=== PATIENT | female | born 1960 | race Caucasian/White ===

== ENCOUNTER → 2016-12-07 | Outpatient (CLI) | payer BC, OTHER ==
--- NOTE | 2016-12-07 15:55 | REPMRS ---
Patient History The patient states she has not had a clinical breast exam in over a year. Patient is postmenopausal. No known family history of cancer. Took hormonal contraceptives for 5 years. Taking estrogen for 15 years. Taking progesterone for 15 years. Digital Woman Screen Mammo: December 07, 2016 - Exam #: [id number] Bilateral CC and MLO view(s) were taken. Technologist: Rocío Benz Technologist Prior study comparison: July 05, 2015, digital woman screen mammo performed at [facility]. March 07, 2014, bilateral bilat screen digital mammo, performed at [facility] ([facility]). November 01, 2012, bilateral bilat screen digital mammo, performed at [facility] ([facility]). FINDINGS: There are scattered fibroglandular densities. There has been no change in the appearance of the mammogram from the prior studies. There is a mild amount of scattered fibroglandular density which is fairly symmetric. There is no interval development of dominant mass, architectural distortion, or clustered microcalcification suggestive of malignancy. ASSESSMENT: BI-RADS/ACR category 1 mammogram. Negative. Recommendation Routine screening mammogram in 1 year (for women over age 40). This mammogram was interpreted with the aid of an FDA-approved computer-aided dectection system. Electronically Signed By: Jonah Carrillo MD 12/07/16 [id number]
== END ==
LOC: M WHC 11:23
PROVIDERS: ATTEND Family Medicine
DX: Z12.39 Encounter for other screening for malignant neoplasm of breast (principal); Z78.0 Asymptomatic menopausal state

== ENCOUNTER → 2017-01-08 | Outpatient (REF) | payer BC, OTHER | LOC: M LABDRAW1 10:29 | PROVIDERS: ATTEND Internal Medicine Gastroenterology | DX: R19.7 Diarrhea, unspecified (principal) ==

== ENCOUNTER → 2017-01-14 | Outpatient (CLI) | payer BC, OTHER ==
[2017-01-14 19:13] LABS: MEAN CORPUSCULAR HGB CONC 32.1 g/dl (32.0-36.5); MEAN CORPUSCULAR VOLUME 90.2 fl (80.0-96.0); RED CELL DISTRIBUTION WIDTH 14.1 % (11.5-14.5); WHITE BLOOD COUNT 7.5 K/mm3 (4.0-10.0)
[2017-01-14 19:17] LABS: ALBUMIN 3.7 GM/DL (3.2-5.2); ALBUMIN/GLOBULIN RATIO 1.12 (1.00-1.93); ALKALINE PHOSPHATASE 65 U/L (45-117); ALT/SGPT 20 U/L (12-78); ANION GAP 5 MEQ/L (8-16); AST/SGOT 12 U/L (15-37); BILIRUBIN,TOTAL 0.3 MG/DL (0.2-1.0); BLOOD UREA NITROGEN 14 MG/DL (7-18); CALCIUM LEVEL 8.5 MG/DL (8.5-10.1); CARBON DIOXIDE LEVEL 28 MEQ/L (21-32); CHLORIDE LEVEL 108 MEQ/L (98-107); CREATININE FOR GFR 0.84 MG/DL (0.55-1.02); GLOMERULAR FILTRATION RATE > 60.0 (>51); GLUCOSE, FASTING 91 MG/DL (70-105); POTASSIUM SERUM 3.9 MEQ/L (3.5-5.1); SODIUM LEVEL 141 MEQ/L (136-145)
[2017-01-19 00:07] LABS: TISSUE TRANSGLUTAMINASE IgG <2 U/mL (0-5)
== END ==
LOC: M WUC 14:40
PROVIDERS: ATTEND Internal Medicine Gastroenterology
DX: R19.4 Change in bowel habit (principal); R10.84 Generalized abdominal pain; R19.7 Diarrhea, unspecified

== ENCOUNTER → 2017-01-18 | Outpatient (CLI) | payer BC, OTHER ==
[~2017-01-18] MED LIST: GASTROGRAFIN SOLUTION 30ML (Q9963) As Ordered ONE; ISOVUE-370 76% 100ML VIAL (Q9967) As Ordered ONE
--- NOTE | 2017-01-18 14:17 | REP ---
Clinical: Abdominal pain with diarrhea. Technique: Axial contrast enhanced images from the lung bases to the pubic symphysis using oral and 100 ml Isovue 370 intravenous contrast material with coronal and sagittal re-formations. Findings: Lung bases demonstrate minimal dependent changes. Liver, spleen, pancreas, gallbladder, bilateral adrenal glands and kidneys are normal. The enteric system is without obstruction or acute inflammatory process. Pelvis demonstrates partially collapsed normal bladder and findings to suggest prior hysterectomy. No pelvic fluid or ascites. 1 cm fat containing periumbilical hernia noted. No adenopathy. Abdominal aorta and vasculature is relatively normal. Surrounding musculoskeletal structures demonstrate age-related changes without focal osseous abnormality. Impression: No acute intra-abdominal or pelvic pathology appreciated. Signed by Brody Delgadillo MD 01/18/2017 02:08 P
== END ==
LOC: M RAD 11:26
PROVIDERS: ATTEND Internal Medicine Gastroenterology
DX: R10.84 Generalized abdominal pain (principal); R19.4 Change in bowel habit; R19.7 Diarrhea, unspecified
CPT/HCPCS: 74177; Q9963; Q9967

== ENCOUNTER → 2017-03-05 | Outpatient (REF) | payer OTHER ==
[~2017-03-05] MED LIST changes: +CALTCHW5 PO; +ESTR1CRE; +ESTRADIOL; -GASTROGRAFIN SOLUTION 30ML (Q9963) As Ordered ONE; -ISOVUE-370 76% 100ML VIAL (Q9967) As Ordered ONE; +MULTCAP11 PO; +TOPI50TA9; +VANC250C2
== END ==
LOC: M SFHCPLAZ 16:51
PROVIDERS: ATTEND Physician Assistant Medical
DX: R19.7 Diarrhea, unspecified (principal)

== ENCOUNTER → 2017-03-06 | Outpatient (CLI) | payer OTHER ==
[2017-03-06 13:04] LABS: BASO % 0.4 % (0.0-1.0); EOS # 0.1 K/mm3 (0.0-0.50); EOS % 0.8 % (0.0-3.0); LARGE UNSTAINED CELL # 0.1 K/mm3 (0.0-0.4); LARGE UNSTAINED CELL % 1.8 % (0.0-4.0); LYMPH # 1.7 K/mm3 (1.5-4.5); LYMPH % 19.8 % (24.0-44.0); MEAN CORPUSCULAR HEMOGLOBIN 28.6 pg (27.0-33.0); MEAN CORPUSCULAR HGB CONC 32.6 g/dl (32.0-36.5); MEAN CORPUSCULAR VOLUME 87.8 fl (80.0-96.0); MONO # 0.5 K/mm3 (0.0-0.8); MONO % 6.8 % (0.0-5.0); NEUTROPHILS # 5.5 K/mm3 (1.8-7.7); NEUTROPHILS % 70.5 % (36.0-66.0); PLATELET COUNT, AUTOMATED 259 k/mm3 (150-450); RED CELL DISTRIBUTION WIDTH 14.1 % (11.5-14.5); WHITE BLOOD COUNT 7.8 K/mm3 (4.0-10.0)
[2017-03-06 13:27] LABS: ANION GAP 10 MEQ/L (8-16); BLOOD UREA NITROGEN 3 MG/DL (7-18); CALCIUM LEVEL 8.9 MG/DL (8.5-10.1); CARBON DIOXIDE LEVEL 26 MEQ/L (21-32); CHLORIDE LEVEL 105 MEQ/L (98-107); CREATININE FOR GFR 0.85 MG/DL (0.55-1.02); GLOMERULAR FILTRATION RATE > 60.0 (>51); GLUCOSE, FASTING 85 MG/DL (70-105); POTASSIUM SERUM 3.3 MEQ/L (3.5-5.1); SODIUM LEVEL 141 MEQ/L (136-145)
[2017-03-12 15:24] LABS: O+P EXAM SEE SEPARATE REPORT
== END ==
LOC: M WUC 10:35
PROVIDERS: ATTEND Physician Assistant Medical
DX: R19.7 Diarrhea, unspecified (principal)

== ENCOUNTER → 2017-03-15 | Outpatient (REF) | payer OTHER ==
[2017-03-15 13:02] LABS: ANION GAP 6 MEQ/L (8-16); BLOOD UREA NITROGEN 11 MG/DL (7-18); CALCIUM LEVEL 9.3 MG/DL (8.5-10.1); CARBON DIOXIDE LEVEL 27 MEQ/L (21-32); CHLORIDE LEVEL 109 MEQ/L (98-107); CREATININE FOR GFR 0.76 MG/DL (0.55-1.02); GLOMERULAR FILTRATION RATE > 60.0 (>51); GLUCOSE, FASTING 70 MG/DL (70-105); POTASSIUM SERUM 4.6 MEQ/L (3.5-5.1); SODIUM LEVEL 142 MEQ/L (136-145)
== END ==
LOC: M SFHCPLAZ 09:34
PROVIDERS: ATTEND Physician Assistant Medical
DX: A04.7 Enterocolitis due to Clostridium difficile (principal)

== ENCOUNTER → 2017-04-07 | Outpatient (REF) | payer OTHER | LOC: M SFHCPLAZ 09:19 | PROVIDERS: ATTEND Physician Assistant Medical | DX: A09 Infectious gastroenteritis and colitis, unspecified (principal) ==

== ENCOUNTER 2017-04-22 09:57 | Emergency (ER) | payer OTHER, BC ==
[~2017-04-22] VITALS: Ht 170.2 cm; Wt 79.5 kg
[2017-04-22] MEDS ORDERED: ESTR1CRE (10:13)
[2017-04-22] MEDS ORDERED: ESTRADIOL (10:13)
[2017-04-22] MEDS ORDERED: MULTCAP11 PO (10:13)
[2017-04-22] MEDS ORDERED: TOPI50TA9 (10:13)
[2017-04-22] MEDS ORDERED: CALTCHW5 PO (10:13)
[2017-04-22] MEDS ORDERED: VANC250C2 (10:13)
[2017-04-22] MEDS ORDERED: DERMABOND TOPICAL SKIN ADHESIVE TOP ONE (10:30)
[2017-04-22] MEDS ORDERED: ADACEL/BOOSTRIX VACCINE (DIPHTH/PERTUSS/ACELL/TETANUS)0.5ML SYR (90715) IM ONE (10:30)
[2017-04-22 11:09] VITALS: BP 107/64
== END 2017-04-22 11:18 | disposition home or self-care (01) ==
LOC: M ED 09:57
DX: S61.211A Laceration without foreign body of left index finger without damage to nail, initial encounter (principal); W26.0XXA Contact with knife, initial encounter; Y92.89 Other specified places as the place of occurrence of the external cause; Y99.9 Unspecified external cause status; Y93.9 Activity, unspecified; Z23 Encounter for immunization

== ENCOUNTER → 2017-04-26 | Outpatient (REF) | payer BC, OTHER | LOC: M LAB REF 16:37 | PROVIDERS: ATTEND Family Medicine | DX: R30.0 Dysuria (principal) ==

== ENCOUNTER → 2017-05-26 | Outpatient (REF) | payer OTHER ==
[2017-05-26 13:57] LABS: ALBUMIN 3.6 GM/DL (3.2-5.2); ALBUMIN/GLOBULIN RATIO 1.13 (1.00-1.93); ALKALINE PHOSPHATASE 55 U/L (45-117); ALT/SGPT 19 U/L (12-78); ANION GAP 6 MEQ/L (8-16); AST/SGOT 13 U/L (15-37); BILIRUBIN,TOTAL 0.3 MG/DL (0.2-1.0); BLOOD UREA NITROGEN 14 MG/DL (7-18); CALCIUM LEVEL 8.9 MG/DL (8.5-10.1); CARBON DIOXIDE LEVEL 28 MEQ/L (21-32); CHLORIDE LEVEL 113 MEQ/L (98-107); CHOLESTEROL LEVEL 230 MG/DL (<200); CREATININE FOR GFR 0.79 MG/DL (0.55-1.02); FREE T4 0.83 NG/DL (0.76-1.46); GLOMERULAR FILTRATION RATE > 60.0 (>51); GLUCOSE, FASTING 79 MG/DL (70-105); POTASSIUM SERUM 4.6 MEQ/L (3.5-5.1); SODIUM LEVEL 147 MEQ/L (136-145); TOTAL PROTEIN 6.8 GM/DL (6.4-8.2); TRIGLYCERIDES LEVEL 73 MG/DL (<150)
== END ==
LOC: M SFHCPLAZ 08:00
PROVIDERS: ATTEND Family Medicine
DX: E78.5 Hyperlipidemia, unspecified (principal); E55.9 Vitamin D deficiency, unspecified

== ENCOUNTER → 2017-06-01 | Outpatient (REF) | payer OTHER | LOC: M SFHCPLAZ 09:02 | PROVIDERS: ATTEND Family Medicine | DX: N39.0 Urinary tract infection, site not specified (principal) ==

== ENCOUNTER → 2017-06-04 | Outpatient (REF) | payer BC, OTHER | LOC: M LAB REF 11:56 | PROVIDERS: ATTEND Family Medicine | DX: A04.7 Enterocolitis due to Clostridium difficile (principal) ==

== ENCOUNTER → 2017-09-15 | Outpatient (CLI) | payer BC, OTHER ==
[2017-09-15 19:09] LABS: BASO # 0.1 10^3/uL (0.0-0.2); BASO % 1.3 % (0.0-1.0); EOS # 0.1 10^3/uL (0.0-0.50); EOS % 1.4 % (0.0-3.0); HEMATOCRIT 41.9 % (36.0-47.0); HEMOGLOBIN 13.5 g/dl (12.0-16.0); IMMATURE GRANULOCYTE % 0.4 % (0-0); LYMPH # 3.2 10^3/uL (1.5-4.5); LYMPH % 39.8 % (24.0-44.0); MEAN CORPUSCULAR HEMOGLOBIN 27.5 pg (27.0-33.0); MEAN CORPUSCULAR HGB CONC 32.2 g/dl (32.0-36.5); MEAN CORPUSCULAR VOLUME 85.3 fl (80.0-96.0); MONO # 0.7 10^3/uL (0.0-0.8); MONO % 8.3 % (0.0-5.0); NEUTROPHILS # 3.9 10^3/uL (1.8-7.7); NEUTROPHILS % 48.8 % (36.0-66.0); PLATELET COUNT, AUTOMATED 323 10^3/uL (150-450); RED BLOOD COUNT 4.91 10^6/uL (4.00-5.40); RED CELL DISTRIBUTION WIDTH 15.2 % (11.5-14.5); WHITE BLOOD COUNT 7.9 10^3/uL (4.0-10.0)
[2017-09-15 20:20] LABS: ALBUMIN 3.8 GM/DL (3.2-5.2); ALBUMIN/GLOBULIN RATIO 0.95 (1.00-1.93); ALKALINE PHOSPHATASE 72 U/L (45-117); ALT/SGPT 24 U/L (12-78); ANION GAP 6 MEQ/L (8-16); AST/SGOT 17 U/L (7-37); BILIRUBIN,TOTAL 0.3 MG/DL (0.2-1.0); BLOOD UREA NITROGEN 17 MG/DL (7-18); CALCIUM LEVEL 9.3 MG/DL (8.5-10.1); CARBON DIOXIDE LEVEL 30 MEQ/L (21-32); CHLORIDE LEVEL 105 MEQ/L (98-107); CPK CREATINE PHOSPHOKINASE 86 U/L (26-192); CREATININE FOR GFR 0.87 MG/DL (0.55-1.02); GLOMERULAR FILTRATION RATE > 60.0 (>51); GLUCOSE, FASTING 79 MG/DL (70-105); POTASSIUM SERUM 3.9 MEQ/L (3.5-5.1); SODIUM LEVEL 141 MEQ/L (136-145); TOTAL PROTEIN 7.8 GM/DL (6.4-8.2); TROPONIN I < 0.02 NG/ML (< 0.10)
[2017-09-15 20:31] LABS: CK-MB VALUE MASS 1.5 NG/ML (0.0-3.6); MB/CK RELATIVE INDEX 1.74 (< OR =4)
== END ==
LOC: M LAB 17:27
DX: R07.89 Other chest pain (principal)
CPT/HCPCS: 71046

== ENCOUNTER → 2018-03-08 | Outpatient (REF) | payer OTHER ==
[2018-03-08 11:26] LABS: APPEARANCE, URINE HAZY (CLEAR); BACTERIA, URINE AUTO 1+ (NEGATIVE); BILIRUBIN, URINE AUTO NEGATIVE (NEGATIVE); BLOOD, URINE BLOOD NEGATIVE (NEGATIVE); COLOR, URINE AMBER (YELLOW); GLUCOSE, URINE (UA) AUTO NEGATIVE (NEGATIVE); KETONE, URINE AUTO NEGATIVE (NEGATIVE); LEUKOCYTE ESTERASE, URINE AUTO TRACE (NEGATIVE); MUCUS, URINE SMALL (NEGATIVE); NITRITE, URINE AUTO POSITIVE (NEGATIVE); PROTEIN, URINE AUTO NEGATIVE (NEGATIVE); RBC, URINE AUTO 5 /HPF (0-3); SQUAMOUS EPITHELIAL CELL UR AU 7 /HPF (0-6); WBC, URINE AUTO 24 /HPF (0-3)
== END ==
LOC: M SFHCPLAZ 10:57
DX: N39.0 Urinary tract infection, site not specified (principal)

== ENCOUNTER → 2018-04-19 | Outpatient (REF) | payer OTHER ==
[2018-04-19 15:09] LABS: APPEARANCE, URINE MANUAL HAZY (CLEAR); COLOR, URINE MANUAL ORANGE (YELLOW)
[2018-04-19 15:10] LABS: BILIRUBIN, URINE MANUAL OBSCURED (NEGATIVE); GLUCOSE, URINE (UA) MANUAL NEGATIVE (NEGATIVE); KETONE, URINE MANUAL OBSCURED mg/dL (NEGATIVE); PROTEIN, URINE MANUAL OBSCURED mg/dL (NEGATIVE); SPECIFIC GRAVITY,URINE MANUAL 1.015 (1.002-1.035); UROBILINOGEN, URINE MANUAL OBSCURED mg/dl (NORMAL)
[2018-04-19 15:11] LABS: BLOOD URINE MANUAL POSITIVE (NEGATIVE); LEUKOCYTE ESTERASE, URINE MAN OBSCURED (NEGATIVE); MICROSCOPIC INDICATED? MAN YES (NO); NITRITE, URINE MANUAL OBSCURED (NEGATIVE)
[2018-04-19 15:24] LABS: RBC, URINE TNTC /hpf (0-3); WBC, URINE 30-40 /hpf (0-3)
[2018-04-19 15:25] LABS: BACTERIA, URINE MOD AMOUNT; HYALINE CAST, URINE NONE SEEN /lpf (0-1); MUCUS, URINE SMALL AMOUNT (NEGATIVE); SQUAMOUS EPITHELIAL CELL URINE SMALL AMOUNT /hpf (SMALL AMT)
[2018-04-19 15:26] LABS: MICROSCOPIC EXAM PERFORMED
== END ==
LOC: M LAB REF 12:54
DX: N39.0 Urinary tract infection, site not specified (principal)

== ENCOUNTER → 2018-06-07 | Outpatient (CLI) | payer OTHER, BC ==
[2018-06-07 12:52] LABS: BASO # 0.1 10^3/uL (0.0-0.2); BASO % 0.8 % (0.0-1.0); EOS # 0.1 10^3/uL (0.0-0.50); EOS % 1.6 % (0.0-3.0); HEMATOCRIT 40.6 % (36.0-47.0); HEMOGLOBIN 12.9 g/dl (12.0-15.5); IMMATURE GRANULOCYTE % 0.9 % (0-3.0); LYMPH # 2.2 10^3/uL (1.5-4.5); LYMPH % 33.7 % (24.0-44.0); MEAN CORPUSCULAR HEMOGLOBIN 28.2 pg (27.0-33.0); MEAN CORPUSCULAR HGB CONC 31.8 g/dl (32.0-36.5); MEAN CORPUSCULAR VOLUME 88.8 fl (80.0-96.0); MONO # 0.5 10^3/uL (0.0-0.8); MONO % 7.4 % (0.0-5.0); NEUTROPHILS # 3.6 10^3/uL (1.8-7.7); NEUTROPHILS % 55.6 % (36.0-66.0); PLATELET COUNT, AUTOMATED 264 10^3/uL (150-450); RED BLOOD COUNT 4.57 10^6/uL (4.00-5.40); RED CELL DISTRIBUTION WIDTH 15.6 % (11.5-14.5); WHITE BLOOD COUNT 6.4 10^3/uL (4.0-10.0)
[2018-06-07 13:06] LABS: ALBUMIN 3.4 GM/DL (3.2-5.2); ALBUMIN/GLOBULIN RATIO 0.97 (1.00-1.93); ALKALINE PHOSPHATASE 64 U/L (45-117); ALT/SGPT 17 U/L (12-78); ANION GAP 8 MEQ/L (8-16); AST/SGOT 15 U/L (7-37); BILIRUBIN,TOTAL 0.3 MG/DL (0.2-1.0); BLOOD UREA NITROGEN 12 MG/DL (7-18); C REACTIVE PROTEIN QUANTITATIV 1.31 MG/DL (0.00-0.30); CALCIUM LEVEL 8.8 MG/DL (8.5-10.1); CARBON DIOXIDE LEVEL 24 MEQ/L (21-32); CHLORIDE LEVEL 110 MEQ/L (98-107); CHOLESTEROL LEVEL 215 MG/DL (<200); CHOLESTEROL RISK RATIO 2.415 (<5); CPK CREATINE PHOSPHOKINASE 82 U/L (26-192); CREATININE FOR GFR 0.83 MG/DL (0.55-1.30); GLOMERULAR FILTRATION RATE > 60.0 (>51); GLUCOSE, FASTING 75 MG/DL (70-100); HDL CHOLESTEROL 89 MG/DL (>40); LDL CHOLESTEROL 109 MG/DL (<100); NON-HDL-C 126 MG/DL; POTASSIUM SERUM 4.4 MEQ/L (3.5-5.1); SODIUM LEVEL 142 MEQ/L (136-145); TOTAL PROTEIN 6.9 GM/DL (6.4-8.2); TRIGLYCERIDES LEVEL 87 MG/DL (<150)
[2018-06-07 13:20] LABS: APPEARANCE, URINE CLEAR (CLEAR); BACTERIA, URINE AUTO NEGATIVE (NEGATIVE); BILIRUBIN, URINE AUTO NEGATIVE (NEGATIVE); BLOOD, URINE BLOOD NEGATIVE (NEGATIVE); COLOR, URINE STRAW (YELLOW); GLUCOSE, URINE (UA) AUTO NEGATIVE (NEGATIVE); KETONE, URINE AUTO NEGATIVE (NEGATIVE); LEUKOCYTE ESTERASE, URINE AUTO NEGATIVE (NEGATIVE); NITRITE, URINE AUTO NEGATIVE (NEGATIVE); PROTEIN, URINE AUTO NEGATIVE (NEGATIVE); RBC, URINE AUTO 0 /HPF (0-3); SPECIFIC GRAVITY URINE AUTO 1.003 (1.002-1.035); SQUAMOUS EPITHELIAL CELL UR AU 0 /HPF (0-6); UROBILINOGEN, URINE AUTO 0.2 mg/dL (0.0-2.0); WBC, URINE AUTO 0 /HPF (0-3)
[2018-06-07 13:21] LABS: ESTIMATED AVERAGE GLUCOSE 105 MG/DL (60-110); HEMOGLOBIN A1c 5.3 %
== END ==
LOC: M WUC 08:36
DX: E78.5 Hyperlipidemia, unspecified (principal); N39.0 Urinary tract infection, site not specified; E66.3 Overweight; G43.109 Migraine with aura, not intractable, without status migrainosus
CPT/HCPCS: 82550

== ENCOUNTER 2018-08-16 07:26 | Observation (INO) | payer BC, OTHER ==
[2018-08-16] MEDS: ONDANSETRON 4MG/2ML VIAL (J2405) IV (08:01)
[2018-08-16] MEDS: NS 500 ML IV (08:01)
[2018-08-16] MEDS: MECLIZINE 25 MG TABLET PO (08:01)
[2018-08-16 08:02] LABS: BASO # 0.1 10^3/uL (0.0-0.2); BASO % 1.1 % (0.0-1.0); EOS # 0.1 10^3/uL (0.0-0.50); EOS % 1.9 % (0.0-3.0); HEMATOCRIT 41.5 % (36.0-47.0); HEMOGLOBIN 13.3 g/dl (12.0-15.5); IMMATURE GRANULOCYTE % 0.4 % (0-3.0); LYMPH # 1.9 10^3/uL (1.5-4.5); LYMPH % 35.1 % (24.0-44.0); MEAN CORPUSCULAR HEMOGLOBIN 28.5 pg (27.0-33.0); MEAN CORPUSCULAR VOLUME 88.9 fl (80.0-96.0); MONO # 0.3 10^3/uL (0.0-0.8); NEUTROPHILS # 2.9 10^3/uL (1.8-7.7); NEUTROPHILS % 55.5 % (36.0-66.0); PLATELET COUNT, AUTOMATED 248 10^3/uL (150-450); RED BLOOD COUNT 4.67 10^6/uL (4.00-5.40); RED CELL DISTRIBUTION WIDTH 14.8 % (11.5-14.5); WHITE BLOOD COUNT 5.3 10^3/uL (4.0-10.0)
[2018-08-16 08:27] LABS: INR 0.91; PROTHROMBIN TIME 12.4 SECONDS (12.1-14.4)
[2018-08-16 08:34] LABS: ANION GAP 6 MEQ/L (8-16); BLOOD UREA NITROGEN 11 MG/DL (7-18); CALCIUM LEVEL 8.8 MG/DL (8.5-10.1); CARBON DIOXIDE LEVEL 26 MEQ/L (21-32); CHLORIDE LEVEL 110 MEQ/L (98-107); CPK CREATINE PHOSPHOKINASE 71 U/L (26-192); CREATININE FOR GFR 0.87 MG/DL (0.55-1.30); GLOMERULAR FILTRATION RATE > 60.0 (>51); GLUCOSE, FASTING 97 MG/DL (70-100); MB/CK RELATIVE INDEX 1.55 (< OR =4); POTASSIUM SERUM 3.7 MEQ/L (3.5-5.1); SODIUM LEVEL 142 MEQ/L (136-145); TROPONIN I < 0.02 NG/ML (< 0.10)
[2018-08-16] MEDS: METOCLOPRAMIDE INJ 10MG/2ML VIAL (J2765) IV (08:50)
[2018-08-16] MEDS: NS 1,000 ML IV (09:55)
[2018-08-16] MEDS: diazePAM 2 MG TAB PO (09:59)
[2018-08-16] MEDS: ENOXAPARIN 40 MG/0.4 ML SYRINGE (J1650) SC (12:42)
[2018-08-16] MEDS: diazePAM 5 MG TAB PO ×2 (12:42→19:42)
[2018-08-16] MEDS: TOPIRAMATE (TopAMAX) 25 MG TAB PO ×2 (12:42→20:36)
[2018-08-16] MEDS: KCL 20MEQ in NS 1000ML 1,000 ML IV ×2 (14:12→20:37)
[2018-08-17] MEDS: diazePAM 5 MG TAB PO ×4 (01:51→21:00)
[2018-08-17] MEDS: KCL 20MEQ in NS 1000ML 1,000 ML IV (03:05)
[2018-08-17 06:33] LABS: HEMATOCRIT 33.6 % (36.0-47.0); MEAN CORPUSCULAR HEMOGLOBIN 28.3 pg (27.0-33.0); MEAN CORPUSCULAR HGB CONC 32.1 g/dl (32.0-36.5); MEAN CORPUSCULAR VOLUME 88.2 fl (80.0-96.0); PLATELET COUNT, AUTOMATED 190 10^3/uL (150-450); RED BLOOD COUNT 3.81 10^6/uL (4.00-5.40); WHITE BLOOD COUNT 6.2 10^3/uL (4.0-10.0)
[2018-08-17 06:37] LABS: HEMOGLOBIN 10.8 g/dl (12.0-15.5)
[2018-08-17 07:00] LABS: ANION GAP 8 MEQ/L (8-16); BLOOD UREA NITROGEN 10 MG/DL (7-18); CALCIUM LEVEL 7.4 MG/DL (8.5-10.1); CARBON DIOXIDE LEVEL 21 MEQ/L (21-32); CHLORIDE LEVEL 120 MEQ/L (98-107); CREATININE FOR GFR 0.79 MG/DL (0.55-1.30); GLOMERULAR FILTRATION RATE > 60.0 (>51); GLUCOSE, FASTING 79 MG/DL (70-100); MAGNESIUM LEVEL 1.8 MG/DL (1.8-2.4); POTASSIUM SERUM 4.1 MEQ/L (3.5-5.1); SODIUM LEVEL 149 MEQ/L (136-145)
[2018-08-17] MEDS: ENOXAPARIN 40 MG/0.4 ML SYRINGE (J1650) SC (08:20)
[2018-08-17] MEDS: TOPIRAMATE (TopAMAX) 25 MG TAB PO ×2 (08:20→21:00)
[2018-08-17] MEDS ORDERED: MECLIZINE 25 MG TABLET As Ordered (11:30)
[2018-08-17] MEDS: MECLIZINE 25 MG TABLET PO (11:32)
[2018-08-17] MEDS: ACETAMINOPHEN TAB 650MG DOSE (2X325MG) PO ×2 (11:56→18:31)
[2018-08-17] MEDS ORDERED: MECLIZINE 25 MG TABLET PO (14:00)
[2018-08-18] MEDS: diazePAM 5 MG TAB PO (03:26)
[2018-08-18 08:02] LABS: BASO # 0.1 10^3/uL (0.0-0.2); BASO % 1.1 % (0.0-1.0); EOS # 0.2 10^3/uL (0.0-0.50); EOS % 3.2 % (0.0-3.0); HEMOGLOBIN 11.6 g/dl (12.0-15.5); IMMATURE GRANULOCYTE % 0.2 % (0-3.0); LYMPH # 2.9 10^3/uL (1.5-4.5); MEAN CORPUSCULAR HEMOGLOBIN 28.2 pg (27.0-33.0); MEAN CORPUSCULAR HGB CONC 31.4 g/dl (32.0-36.5); MEAN CORPUSCULAR VOLUME 89.8 fl (80.0-96.0); MONO # 0.5 10^3/uL (0.0-0.8); MONO % 8.4 % (0.0-5.0); NEUTROPHILS # 2.5 10^3/uL (1.8-7.7); NEUTROPHILS % 40.1 % (36.0-66.0); PLATELET COUNT, AUTOMATED 197 10^3/uL (150-450); RED BLOOD COUNT 4.12 10^6/uL (4.00-5.40); RED CELL DISTRIBUTION WIDTH 15.4 % (11.5-14.5); WHITE BLOOD COUNT 6.2 10^3/uL (4.0-10.0)
[2018-08-18 08:19] LABS: ALBUMIN 2.7 GM/DL (3.2-5.2); ALBUMIN/GLOBULIN RATIO 0.84 (1.00-1.93); ALKALINE PHOSPHATASE 50 U/L (45-117); ALT/SGPT 17 U/L (12-78); ANION GAP 6 MEQ/L (8-16); AST/SGOT 12 U/L (7-37); BILIRUBIN,TOTAL 0.1 MG/DL (0.2-1.0); BLOOD UREA NITROGEN 9 MG/DL (7-18); CALCIUM LEVEL 8.1 MG/DL (8.5-10.1); CARBON DIOXIDE LEVEL 24 MEQ/L (21-32); CHLORIDE LEVEL 116 MEQ/L (98-107); CREATININE FOR GFR 0.76 MG/DL (0.55-1.30); GLOMERULAR FILTRATION RATE > 60.0 (>51); GLUCOSE, FASTING 86 MG/DL (70-100); POTASSIUM SERUM 4.2 MEQ/L (3.5-5.1); SODIUM LEVEL 146 MEQ/L (136-145); TOTAL PROTEIN 5.9 GM/DL (6.4-8.2)
[2018-08-18] MEDS: ENOXAPARIN 40 MG/0.4 ML SYRINGE (J1650) SC (08:39)
[2018-08-18] MEDS: TOPIRAMATE (TopAMAX) 25 MG TAB PO (08:41)
== END 2018-08-18 10:24 | disposition home or self-care (01) ==
LOC: M ED 07:26 → M ED INP 11:40 → M MSPAV 12:22
PROVIDERS: Family Medicine
DX: G43.109 Migraine with aura, not intractable, without status migrainosus (principal); E66.3 Overweight; J30.9 Allergic rhinitis, unspecified; M72.2 Plantar fascial fibromatosis; A04.72 Enterocolitis due to Clostridium difficile, not specified as recurrent; Z79.899 Other long term (current) drug therapy; N39.0 Urinary tract infection, site not specified
CPT/HCPCS: J2405

== ENCOUNTER 2018-09-01 11:15 | Outpatient (RCR) | payer BC, OTHER ==
[~2018-09-01 11:15] MED LIST changes: +CALTTAB11 PO; +CRAN500C2 PO; +ESTR0.5T3 PO; +ESTR1CRE PV; +MECL-68 PO; +PROBCAP14 PO; +TOPA1TAB PO; -TOPI50TA9; +TOPI50TA9 PO; +VITA200038 PO; +VITMTA PO
== END 2018-09-05 | disposition home or self-care (01) ==
LOC: M PT 11:15
PROVIDERS: ATTEND Nurse Practitioner Family
DX: H81.10 Benign paroxysmal vertigo, unspecified ear (principal)

== ENCOUNTER 2018-09-22 07:30 | Outpatient (RCR) | payer BC, OTHER | END 2018-10-06 | LOC: M PT 07:30 | PROVIDERS: ATTEND Nurse Practitioner Family | DX: H81.10 Benign paroxysmal vertigo, unspecified ear (principal) ==

== ENCOUNTER → 2019-06-14 | Outpatient (REF) | payer OTHER ==
[~2019-06-14] MED LIST changes: -VANC250C2; +VANC250C3
[2019-06-19 00:06] LABS: D001-IgE D pteronyssinus <0.10 kU/L (Class 0); E001-IgE Cat Epith/Dander < 0.10 kU/L (Class 0); E005-IgE Dog Dander < 0.10 kU/L (Class 0); G002-IgE Bermuda Grass < 0.10 kU/L (Class 0); G008-IgE Kentucky Bluegrass < 0.10 kU/L (Class 0); M001-IgE Penicillium chrysogen < 0.10 kU/L (Class 0); M002 IgE Cladosporium herbaru < 0.10 kU/L (Class 0); M003 IgE Aspergillus fumigatu < 0.10 kU/L (Class 0); M006-IgE Alternaria alternata < 0.10 kU/L (Class 0); T001-IgE Maple/Box Elder < 0.10 kU/L (Class 0); T003-IgE Common Silver Birch < 0.10 kU/L (Class 0); T006-IgE Cedar, Mountain < 0.10 kU/L (Class 0); T007-IgE Oak, White < 0.10 kU/L (Class 0); T008-IgE Elm, American < 0.10 kU/L (Class 0); T015-IgE Ash, White < 0.10 kU/L (Class 0); T041-IgE Hickory, White < 0.10 kU/L (Class 0); T070-IgE White Mulberry < 0.10 kU/L (Class 0); W001-IgE Ragweed, Short < 0.10 kU/L (Class 0); W009-IgE Plantain, English < 0.10 kU/L (Class 0); W014-IgE Pigweed, Rough < 0.10 kU/L (Class 0); W018-IgE Sheep Sorrel < 0.10 kU/L (Class 0)
== END ==
LOC: M LABDRAWP 15:04
PROVIDERS: ATTEND Dermatology
DX: L30.9 Dermatitis, unspecified (principal)

== ENCOUNTER → 2020-01-26 | Outpatient (REF) | payer OTHER ==
[~2020-01-26] MED LIST changes: -MECL-68 PO; +MECL1TAB31 PO
[2020-01-26 17:16] LABS: ALBUMIN 3.6 GM/DL (3.2-5.2); ALT/SGPT 19 U/L (12-78); BILIRUBIN,TOTAL 0.2 MG/DL (0.2-1.0); BLOOD UREA NITROGEN 22 MG/DL (7-18); CALCIUM LEVEL 9.2 MG/DL (8.8-10.2); CARBON DIOXIDE LEVEL 29 MEQ/L (21-32); CHLORIDE LEVEL 105 MEQ/L (98-107); CHOLESTEROL LEVEL 239 MG/DL (<200); CHOLESTEROL RISK RATIO 2.172 (<5); CREATININE FOR GFR 0.87 MG/DL (0.55-1.30); FREE T4 0.81 NG/DL (0.76-1.46); GLOMERULAR FILTRATION RATE > 60.0 (>45); GLUCOSE, FASTING 82 MG/DL (70-100); HDL CHOLESTEROL 110 MG/DL (>40); LDL CHOLESTEROL 109 MG/DL (<100); NON-HDL-C 129 MG/DL; POTASSIUM SERUM 4.3 MEQ/L (3.5-5.1); SODIUM LEVEL 138 MEQ/L (136-145); TRIGLYCERIDES LEVEL 99 MG/DL (<150)
== END ==
LOC: M SFHCPLAZ 14:32
PROVIDERS: ATTEND Family Medicine
DX: E78.5 Hyperlipidemia, unspecified (principal); E55.9 Vitamin D deficiency, unspecified; M85.80 Other specified disorders of bone density and structure, unspecified site

== ENCOUNTER → 2020-01-26 | Outpatient (CLI) | payer BC ==
--- NOTE | 2020-01-26 14:48 | REPMRS ---
Patient History The patient states she has not had a clinical breast exam in over a year. No known family history of cancer. Took hormonal contraceptives for 5 years. Taking estrogen for 16 years. Taking progesterone for 16 years. Digital Woman Screen Mammo: January 26, 2020 - Exam #: [id number] Bilateral CC and MLO view(s) were taken. Technologist: Sarah Tobias, Technologist Prior study comparison: May 06, 2018, bilateral digital woman screen mammo performed at [facility]. December 07, 2016, digital woman screen mammo performed at [facility]. July 05, 2015, digital woman screen mammo performed at [facility]. FINDINGS: There are scattered fibroglandular densities. The Volpara volumetric breast density category is:B. There has been no change in the appearance of the mammogram from the prior studies. There is a mild amount of scattered fibroglandular density which is fairly symmetric. There is no interval development of dominant mass, architectural distortion, or grouped microcalcification suggestive of malignancy. 3-D tomosynthesis shows no additional findings. Assessment: BI-RADS/ACR category 1 mammogram. Negative Mammogram. Recommendation Routine screening mammogram of both breasts in 1 year (for women over age 40). This patient's Lifetime Breast Cancer Risk is estimated at 5.8 %. This mammogram was interpreted with the aid of an FDA-approved computer-aided dectection system. Electronically Signed By: Jonah Carrillo MD 01/26/20 1770
--- NOTE | 2020-02-02 15:42 | DEXA ---
AP SPINE L1 - L4 1.362 1.4 2.6 LT FEMUR TOTAL 0.927 -0.6 0.3 LT NECK 0.808 -1.7 -0.4 RT FEMUR TOTAL 0.935 -0.6 0.4 RT NECK 0.864 -1.3 0.0 TOTAL BODY TOTAL OTHER COMMENTS: Normal bone densitometry of the spine. There is low bone density of the hips. The density of the left hip has increased 1.6% since 10/10/2014. The density of the right hip has increased 0.9% since 10/10/2014. The increased density of the spine does not represent a significant change. The increased density of the left hip does not represent a significant change. The increased density of the right hip does not represent significant change. The density of the spine has decreased 2.7% since the initial exam on 08/03/2006. The increased 1.9% since the most recent exam on 10/10/2014. FOLLOW-UP: Recommendation for the next bone density exam: 2 years. [facility]
== END ==
LOC: M WHC 13:36
PROVIDERS: ATTEND Family Medicine
DX: Z12.31 Encounter for screening mammogram for malignant neoplasm of breast (principal); M85.851 Other specified disorders of bone density and structure, right thigh; M85.852 Other specified disorders of bone density and structure, left thigh

== ENCOUNTER → 2020-03-12 | Outpatient (CLI) | payer BC, OTHER ==
--- NOTE | 2020-03-12 14:05 | REPPI ---
REASON FOR EXAM: Paresthesia. AP and lateral views of the thoracic spine were obtained. There are no priors for comparison. There is anterior lipping and anterior disc space narrowing at every level. Small marginal osteophytes are seen involving the right-sided lower thoracic levels. The pedicles appear to be intact bilaterally. Vertebral body height and alignment is within normal limits. IMPRESSION: Chronic changes as described above, however, since the patient is experiencing paresthesias, pre- and post gadolinium enhanced MRI is recommended. Electronically Signed by Cisco Alatorre DO 03/12/2020 05:26 P
--- NOTE | 2020-03-12 14:08 | REPPI ---
REASON FOR EXAM: Pain. PRIORS: None. FINDINGS: Three views of the left shoulder were performed. The acromioclavicular and glenohumeral relationships are within normal limits. There is no acute fracture or destructive osseous lesions. Electronically Signed by Cisco Alatorre DO 03/12/2020 05:26 P
== END ==
LOC: M PLAIMG 09:14
PROVIDERS: ATTEND Physician Assistant Medical
DX: M25.78 Osteophyte, vertebrae (principal); M51.34 Other intervertebral disc degeneration, thoracic region; R20.2 Paresthesia of skin; M79.18 Myalgia, other site

== ENCOUNTER → 2020-05-14 | Outpatient (CLI) | payer BC, OTHER ==
--- NOTE | 2020-05-14 09:57 | REPVR ---
PROCEDURE INFORMATION: Exam: MR Cervical Spine Without Contrast Exam date and time: 05/14/2020 9:23 AM Age: 59 years old Clinical indication: Radicular pain (radiculopathy); Cervical region; Additional info: Cervical ddd, radiculopathy TECHNIQUE: Imaging protocol: Multiplanar magnetic resonance images of the cervical spine without contrast. COMPARISON: No relevant prior studies available. FINDINGS: Vertebrae: Unremarkable. Spinal cord: Normal signal. No cord compression. C2-C3: No significant disc disease. No significant spinal stenosis. C3-C4: No significant disc disease. No significant spinal stenosis. C4-C5: Mild disc desiccation changes. No significant spinal stenosis. C5-C6: Disc desiccation changes left facet arthropathy. Mild stenosis of the spinal canal and left neural foramen. C6-C7: Disc desiccation changes. No significant spinal stenosis. C7-T1: No significant disc disease. No significant spinal stenosis. Vertebral arteries: Expected flow voids in the vertebral arteries. Soft tissues: Unremarkable. IMPRESSION: Mild stenosis of the spinal canal and left neural foramen at C5-C6 Electronically signed by: Candelario Bonilla On 05/14/2020 09:56:42 AM
--- NOTE | 2020-05-14 10:02 | REPVR ---
PROCEDURE INFORMATION: Exam: MR Thoracic Spine Without Contrast Exam date and time: 05/14/2020 9:35 AM Age: 59 years old Clinical indication: Pain in thoracic intervertebral disc disorder; With radiculopathy; Bilateral; Additional info: Cervical ddd, radiculopathy TECHNIQUE: Imaging protocol: Multiplanar magnetic resonance images of the thoracic spine without intravenous contrast. COMPARISON: CR SPINE THORACIC 3 VIEWS 03/12/2020 9:35 AM FINDINGS: Vertebrae: Mild bone marrow signal heterogeneity. Suggestion of hemangiomata at several levels. Spinal cord: Normal signal. No cord compression. T1-T2: Mild disc desiccation changes. No significant spinal canal stenosis. T2-T3: Mild disc desiccation changes. No significant spinal canal stenosis. T3-T4: Mild disc desiccation changes. No significant spinal canal stenosis. T4-T5: Mild disc desiccation changes. No significant spinal canal stenosis. T5-T6: Mild disc desiccation changes. Broad central disc bulge. No significant spinal canal stenosis. T6-T7: Mild disc desiccation changes. Right paracentral disc bulge encroaching right neural foraminal recess. No significant spinal canal stenosis. T7-T8: Mild disc desiccation changes. No significant spinal canal stenosis. T8-T9: Mild disc desiccation changes. No significant spinal canal stenosis. T9-T10: Mild disc desiccation changes. No significant spinal canal stenosis. T10-T11: Mild disc desiccation changes. No significant spinal canal stenosis. T11-T12: Mild disc desiccation changes. No significant spinal canal stenosis. Soft tissues: Unremarkable. IMPRESSION: No acute findings. Electronically signed by: Candelario Bonilla On 05/14/2020 10:02:02 AM
== END ==
LOC: M RAD 08:01
PROVIDERS: ATTEND Physician Assistant Medical
DX: M50.122 Cervical disc disorder at C5-C6 level with radiculopathy (principal); M51.34 Other intervertebral disc degeneration, thoracic region

== ENCOUNTER → 2020-06-26 | Outpatient (CLI) | payer BC, OTHER | LOC: M LABSMTC 09:35 | PROVIDERS: ATTEND Pediatrics | DX: Z20.828 Contact with and (suspected) exposure to other viral communicable diseases (principal) ==

== ENCOUNTER → 2020-07-02 | Outpatient (CLI) | payer SELFPAY | LOC: M LABSMTC 09:27 | PROVIDERS: ATTEND Pediatrics | DX: Z20.828 Contact with and (suspected) exposure to other viral communicable diseases (principal) ==

== ENCOUNTER → 2020-07-05 | Outpatient (CLI) | payer SELFPAY | LOC: M LABSMTC 11:27 | PROVIDERS: ATTEND Pediatrics | DX: Z20.828 Contact with and (suspected) exposure to other viral communicable diseases (principal) ==

== ENCOUNTER → 2020-07-09 | Outpatient (CLI) | payer SELFPAY | LOC: M LABSMTC 09:43 | PROVIDERS: ATTEND Pediatrics | DX: Z20.828 Contact with and (suspected) exposure to other viral communicable diseases (principal) ==

== ENCOUNTER → 2020-09-11 | Outpatient (REF) | payer SELFPAY ==
[~2020-09-11] MED LIST changes: +IBUP-1114 PO; +MEDR4PAK PO
[2020-09-11 15:41] LABS: RSV AMPLIFICATION NEGATIVE (NEGATIVE)
== END ==
LOC: M LABSMTC 08:00 → EDSTATUS 13:00 → M LABSMTC 13:08
PROVIDERS: ATTEND Pediatrics
DX: Z20.822 Contact with and (suspected) exposure to COVID-19 (principal)

== ENCOUNTER 2020-11-14 08:21 | Emergency (ER) | payer BC, OTHER ==
[~2020-11-14] VITALS: Ht 170.2 cm; Wt 81.8 kg
[~2020-11-14 08:21] MED LIST changes: -IBUP-1114 PO; -MEDR4PAK PO
[2020-11-14] MEDS ORDERED: KETOROLAC 30 MG/ML 1ML VIAL IV ONE ×2 (08:40→10:50)
[2020-11-14] MEDS ORDERED: KETOROLAC 30 MG/ML 1ML VIAL IM ONE ×2 (10:55→11:05)
--- NOTE | 2020-11-14 11:34 | REP ---
INDICATION: left radicular paresthesia/weakness. COMPARISON: Comparison is made with images obtained as part of CT study abdomen January 18, 2017.. TECHNIQUE: Sagittal and axial T1 and T2-weighted scans are acquired in the usual fashion with and without fat saturation. Sequences include spin echo, turbo spin-echo, and STIR imaging sequences. FINDINGS: Lumbar vertebral body heights are preserved. Alignment is normal. Cortical and medullary bone signal intensity are normal. The tip of the conus medullaris is normal in position and appearance at L1. No extra vertebral abnormality is observed. Axial and sagittal images taken at L1-2 show no significant finding. At L2-3, there is a minimal disc space signal intensity loss and mild diffuse disc bulging is present. At L3-4, there is degenerative disc narrowing and desiccation. Mild diffuse disc bulging is present. No disc protrusion or neural foraminal narrowing is seen. Canal size is normal at L3-4. At L4-5, there is degenerative narrowing and decreased signal intensity on T2 weighted scans. There is a small right posterior disc protrusion which appears to compress the exiting right 5th lumbar root and indent the right ventral margin of the thecal sac. The left neural foramen appears intact. No left-sided disc protrusion is seen. There is mild facet hypertrophy and ligamentum flavum hypertrophy at L4-5. At L5-S1, there is facet hypertrophy bilaterally. Minimal central disc bulging is seen. No neural foraminal narrowing is noted. IMPRESSION: Degenerative disc and osteoarthritic facet disease. There is a right posterior disc protrusion at L4-5. No left-sided disc protrusion is seen. <Electronically signed by Jonah Carrillo > 11/14/20 2622
[2020-11-14 11:43] VITALS: BP 92/51
[2020-11-14] MEDS ORDERED: MEDR4PAK PO (12:33)
[2020-11-14] MEDS ORDERED: IBUP-1114 PO (12:34)
--- NOTE | 2020-11-15 07:52 | ED PDOC ---
Post-Departure Follow-Up dr pepper faxed formal report of mri ls spine for fu Lukasz Arrington MD Nov 15, 2020 07:52
--- NOTE | 2020-11-15 07:53 | ED PDOC ---
Post-Departure Follow-Up dr nation also faxed formal report of mri ls spine for fu Lukasz Mcgregor MD Nov 15, 2020 07:53
== END 2020-11-14 12:42 | disposition home or self-care (01) ==
LOC: M ED 08:21
DX: M51.16 Intervertebral disc disorders with radiculopathy, lumbar region (principal); M46.96 Unspecified inflammatory spondylopathy, lumbar region; Z79.899 Other long term (current) drug therapy
CPT/HCPCS: 72148; 96372; 96374; 99283; J1885

== ENCOUNTER → 2021-01-20 | Outpatient (REF) | payer OTHER ==
[~2021-01-20] MED LIST changes: +IBUP-1114 PO; +MEDR4PAK PO
[2021-01-20 14:44] LABS: APPEARANCE, URINE CLEAR (CLEAR); BACTERIA, URINE AUTO NEGATIVE (NEGATIVE); BILIRUBIN, URINE AUTO NEGATIVE (NEGATIVE); BLOOD, URINE BLOOD NEGATIVE (NEGATIVE); COLOR, URINE AMBER (YELLOW); GLUCOSE, URINE (UA) AUTO NEGATIVE (NEGATIVE); KETONE, URINE AUTO NEGATIVE (NEGATIVE); LEUKOCYTE ESTERASE, URINE AUTO NEGATIVE (NEGATIVE); NITRITE, URINE AUTO POSITIVE (NEGATIVE); PROTEIN, URINE AUTO NEGATIVE (NEGATIVE); RBC, URINE AUTO 0 /HPF (0-3); SPECIFIC GRAVITY URINE AUTO 1.012 (1.002-1.035); SQUAMOUS EPITHELIAL CELL UR AU 0 /HPF (0-6); WBC, URINE AUTO 0 /HPF (0-3)
== END ==
LOC: M SFHCPLAZ 14:36
PROVIDERS: ATTEND Family Medicine
DX: R30.0 Dysuria (principal)

== ENCOUNTER → 2021-01-22 | Outpatient (REF) | payer OTHER | LOC: M SFHCPLAZ 13:02 | PROVIDERS: ATTEND Physician Assistant Medical | DX: R30.0 Dysuria (principal) ==

== ENCOUNTER → 2021-02-25 | Outpatient (CLI) | payer OTHER ==
[2021-02-25 11:44] LABS: BASO # 0.1 10^3/uL (0.0-0.2); BASO % 1.4 % (0.0-1.0); EOS # 0.1 10^3/uL (0.0-0.5); EOS % 2.2 % (0.0-3.0); HEMATOCRIT 39.6 % (36.0-47.0); HEMOGLOBIN 12.6 g/dl (12.0-15.5); LYMPH # 2.2 10^3/uL (1.5-5.0); LYMPH % 34.3 % (24.0-44.0); MEAN CORPUSCULAR HEMOGLOBIN 28.7 pg (27.0-33.0); MEAN CORPUSCULAR HGB CONC 31.8 g/dl (32.0-36.5); MEAN CORPUSCULAR VOLUME 90.2 fl (80.0-96.0); MONO # 0.6 10^3/uL (0.0-0.8); MONO % 8.7 % (2.0-8.0); NEUTROPHILS # 3.3 10^3/uL (1.5-8.5); NEUTROPHILS % 52.8 % (36.0-66.0); PLATELET COUNT, AUTOMATED 252 10^3/uL (150-450); RED BLOOD COUNT 4.39 10^6/uL (4.00-5.40); WHITE BLOOD COUNT 6.3 10^3/uL (4.0-10.0)
[2021-02-25 12:03] LABS: HEMOGLOBIN A1c 5.4 %
[2021-02-25 12:46] LABS: ALBUMIN 3.3 GM/DL (3.2-5.2); ALT/SGPT 18 U/L (12-78); BILIRUBIN,TOTAL 0.3 MG/DL (0.2-1.0); BLOOD UREA NITROGEN 15 MG/DL (7-18); CALCIUM LEVEL 9.1 MG/DL (8.8-10.2); CARBON DIOXIDE LEVEL 25 MEQ/L (21-32); CHLORIDE LEVEL 111 MEQ/L (98-107); CHOLESTEROL LEVEL 228 MG/DL (<200); CHOLESTEROL RISK RATIO 2.303 (<5); CREATININE FOR GFR 0.86 MG/DL (0.55-1.30); FREE T4 0.84 NG/DL (0.76-1.46); GLOMERULAR FILTRATION RATE > 60.0 (>45); GLUCOSE, FASTING 83 MG/DL (70-100); HDL CHOLESTEROL 99 MG/DL (>40); LDL CHOLESTEROL 111 MG/DL (<100); NON-HDL-C 129 MG/DL; PTH INTACT 25.6 PG/ML (18.5-88.0); SODIUM LEVEL 142 MEQ/L (136-145); THYROID STIMULATING HORMONE 0.987 uIU/ML (0.358-3.740); TOTAL 25(OH) VITAMIN D 53.6 NG/ML (30.0-100.0); TOTAL PROTEIN 6.8 GM/DL (6.4-8.2); TRIGLYCERIDES LEVEL 91 MG/DL (<150)
== END ==
LOC: M WUC 08:49
PROVIDERS: ATTEND Family Medicine
DX: M85.80 Other specified disorders of bone density and structure, unspecified site (principal); E55.9 Vitamin D deficiency, unspecified; E78.5 Hyperlipidemia, unspecified

== ENCOUNTER → 2021-05-23 | Outpatient (CLI) | payer BC, OTHER ==
--- NOTE | 2021-05-23 12:54 | REPMRS ---
Patient History The patient states she has not had a clinical breast exam in over a year. Patient is postmenopausal. No known family history of cancer. Took hormonal contraceptives for 5 years. Taking estrogen for 17 years. Taking progesterone for 17 years. Patient states no breast complaints today. Patient has signed MRS History Sheet. Digital Woman Screen Mammo: May 23, 2021 - Exam #: [id number] Bilateral CC and MLO view(s) were taken. Technologist: Marianela Oconnor, Technologist Prior study comparison: January 26, 2020, bilateral digital woman screen mammo performed at [facility]. May 06, 2018, bilateral digital woman screen mammo performed at [facility]. FINDINGS: There are scattered fibroglandular densities. Screening. Digital screening (2D) mammography was performed bilaterally in the CC and MLO projections. Additionally, breast tomosynthesis (3D mammography) was performed bilaterally in the CC and MLO projections. Todays exam was compared to the prior exam/exams. By history, the patient has no complaints of a palpable breast abnormality or other significant breast complaints. The breasts are unchanged in size and shape. There are no marianne-soft tissue densities or spiculated masses. There is no internal architectural distortion. There are no suspicious marianne-calcific clusters. Skin thickening or nipple retraction is not present. IMPRESSION: BI-RADS Category 2- Benign Findings. There is no evidence of malignant alteration of the breasts. Followup examination recommended in one year. The Volpara volumetric breast density category is B, there are scattered areas of fibroglandular densities. This mammogram was read with the assistance of Ma[employer]en [employer],an FDA approved computer aided detection system for mammography. The lifetime Tyrer-Cuzick score is 5.6 % Negative x-ray reports should not delay surgical consultation if a dominant or clinically suspicious mass is present. Not all breast cancers can be identified by mammography. Therefore, we recommend that you continue to perform regular breast self-examination and physical examination and then promptly contact your physician of any concerns or changes. Adenosis and dense breasts may obscure an underlying neoplasm. Assessment: BI-RADS/ACR category 2 mammogram. Benign Findings. Recommendation Routine screening mammogram of both breasts in 1 year. Electronically Signed By: Cisco Alatorre DO 05/23/21 [id number]
== END ==
LOC: M WHC 12:02
PROVIDERS: ATTEND Family Medicine
DX: Z12.31 Encounter for screening mammogram for malignant neoplasm of breast (principal); Z78.0 Asymptomatic menopausal state

== ENCOUNTER → 2021-09-16 | Outpatient (CLI) | payer OTHER, BC ==
[~2021-09-16] MED LIST changes: +CALT1TAB PO; +CVS500CA5 PO; +MYRB25TA PO; +VESI10TA2 PO; +VITA200048 PO
[2021-09-16 09:51] LABS: BASO # 0.1 10^3/uL (0.0-0.2); BASO % 1.2 % (0.0-1.0); EOS # 0.2 10^3/uL (0.0-0.5); EOS % 2.5 % (0.0-3.0); HEMATOCRIT 45.1 % (36.0-47.0); HEMOGLOBIN 14.2 g/dl (12.0-15.5); LYMPH # 2.2 10^3/uL (1.5-5.0); LYMPH % 30.3 % (24.0-44.0); MEAN CORPUSCULAR HEMOGLOBIN 28.4 pg (27.0-33.0); MEAN CORPUSCULAR HGB CONC 31.5 g/dl (32.0-36.5); MEAN CORPUSCULAR VOLUME 90.2 fl (80.0-96.0); MONO # 0.6 10^3/uL (0.0-0.8); MONO % 8.2 % (2.0-8.0); NEUTROPHILS # 4.1 10^3/uL (1.5-8.5); NEUTROPHILS % 56.8 % (36.0-66.0); PLATELET COUNT, AUTOMATED 263 10^3/uL (150-450); WHITE BLOOD COUNT 7.2 10^3/uL (4.0-10.0)
[2021-09-16 10:30] LABS: BLOOD UREA NITROGEN 15 MG/DL (7-18); CALCIUM LEVEL 9.5 MG/DL (8.8-10.2); CARBON DIOXIDE LEVEL 29 MEQ/L (21-32); CHLORIDE LEVEL 106 MEQ/L (98-107); CREATININE FOR GFR 0.97 MG/DL (0.55-1.30); GLOMERULAR FILTRATION RATE > 60.0 (>45); GLUCOSE, FASTING 81 MG/DL (70-100); POTASSIUM SERUM 4.2 MEQ/L (3.5-5.1); SODIUM LEVEL 140 MEQ/L (136-145)
[2021-09-17 11:00] LABS: APPEARANCE, URINE CLEAR (CLEAR); BACTERIA, URINE AUTO NEGATIVE (NEGATIVE); BILIRUBIN, URINE AUTO NEGATIVE (NEGATIVE); BLOOD, URINE BLOOD NEGATIVE (NEGATIVE); CALCIUM OXALATE CRYSTALS SMALL; COLOR, URINE YELLOW (YELLOW); GLUCOSE, URINE (UA) AUTO NEGATIVE (NEGATIVE); KETONE, URINE AUTO 1+ mg/dL (NEGATIVE); LEUKOCYTE ESTERASE, URINE AUTO NEGATIVE (NEGATIVE); NITRITE, URINE AUTO NEGATIVE (NEGATIVE); PROTEIN, URINE AUTO NEGATIVE (NEGATIVE); RBC, URINE AUTO 0 /HPF (0-3); SQUAMOUS EPITHELIAL CELL UR AU 0 /HPF (0-6); UROBILINOGEN, URINE AUTO 0.2 mg/dL (0.0-2.0); WBC, URINE AUTO 3 /HPF (0-3)
== END ==
LOC: M EKG 08:44
PROVIDERS: ATTEND Podiatrist
DX: Z01.818 Encounter for other preprocedural examination (principal); M72.2 Plantar fascial fibromatosis; N32.81 Overactive bladder; N39.41 Urge incontinence; M79.672 Pain in left foot

== ENCOUNTER → 2021-09-18 | Outpatient (REF) | payer OTHER, BC ==
[~2021-09-18] MED LIST changes: +CEPH500C PO; +PHEN-501 PO
[2021-09-18 17:11] LABS: APPEARANCE, URINE CLEAR (CLEAR); BACTERIA, URINE AUTO 1+ (NEGATIVE); BILIRUBIN, URINE AUTO NEGATIVE (NEGATIVE); BLOOD, URINE BLOOD 2+ (NEGATIVE); COLOR, URINE STRAW (YELLOW); GLUCOSE, URINE (UA) AUTO NEGATIVE (NEGATIVE); KETONE, URINE AUTO TRACE mg/dL (NEGATIVE); LEUKOCYTE ESTERASE, URINE AUTO 2+ (NEGATIVE); MUCUS, URINE SMALL (NEGATIVE); NITRITE, URINE AUTO NEGATIVE (NEGATIVE); PROTEIN, URINE AUTO NEGATIVE (NEGATIVE); RBC, URINE AUTO 3 /HPF (0-3); SPECIFIC GRAVITY URINE AUTO 1.003 (1.002-1.035); SQUAMOUS EPITHELIAL CELL UR AU 0 /HPF (0-6); UROBILINOGEN, URINE AUTO 0.2 mg/dL (0.0-2.0); WBC, URINE AUTO 18 /HPF (0-3)
== END ==
LOC: M LAB REF 16:26
PROVIDERS: ATTEND Physician Assistant Medical
DX: R30.0 Dysuria (principal)

== ENCOUNTER 2021-09-19 06:07 | Day surgery (SDC) | payer BC, OTHER ==
[~2021-09-19] VITALS: Ht 167.6 cm; Wt 84.4 kg
[~2021-09-19 06:07] MED LIST changes: -CEPH500C PO; +LR 1,000 ML IV ONE; -PHEN-501 PO; +ceFAZolin SOD 2 GM in IV 1 EA IV ONE
[2021-09-19] MEDS ORDERED: PHEN-501 PO (06:47)
[2021-09-19] MEDS ORDERED: CEPH500C PO (06:47)
[2021-09-19] MEDS ORDERED: LIDOCAINE 2% 100MG/5ML SDV (FOR ANES.) As Ordered ONE (07:16)
[2021-09-19] MEDS ORDERED: KETOROLAC 60MG 2ML VIAL As Ordered ONE (07:16)
[2021-09-19] MEDS ORDERED: propofoL 200 MG/20 ML VIAL As Ordered ONE (07:16)
[2021-09-19] MEDS ORDERED: ONDANSETRON 4MG/2ML VIAL As Ordered ONE (07:16)
[2021-09-19] MEDS ORDERED: dexameTHASONE 4 MG/ML 1ML VIAL (J1100 PER 1MG) As Ordered ONE ×2 (07:16→07:17)
[2021-09-19] MEDS ORDERED: BUPIVACAINE HCL 0.5% 30 ML VIAL As Ordered ONE (07:17)
[2021-09-19] MEDS ORDERED: fentaNYL 100 MCG/2 ML INJECTION (J3010) As Ordered ONE (07:17)
[2021-09-19] MEDS ORDERED: LIDOCAINE 2% MDV 20ML VIAL As Ordered ONE (07:17)
[2021-09-19] MEDS ORDERED: GENTAMICIN SULF 80MG/2ML VIAL As Ordered ONE (07:17)
[2021-09-19] MEDS ORDERED: MIDAZOLAM INJ 2MG/2ML VIAL (J2250 PER 1MG) As Ordered ONE (07:17)
[2021-09-19] MEDS ORDERED: ceFAZolin SOD 1 GM in D5W MINI-BAG PLUS 50 ML IV ONE (07:35)
[2021-09-19] MEDS ORDERED: ceFAZolin 1GM VIAL (J0690 PER 500MG) As Ordered ONE (07:43)
[2021-09-19] MEDS ORDERED: oxyCODONE 5MG TAB PO PRN (08:40)
[2021-09-19 08:50] VITALS: BP 101/55
== END 2021-09-19 09:11 | disposition home or self-care (01) ==
LOC: M SDC 06:07
PROVIDERS: ATTEND Podiatrist
DX: M72.2 Plantar fascial fibromatosis (principal); M79.672 Pain in left foot; G43.909 Migraine, unspecified, not intractable, without status migrainosus; M54.50 Low back pain, unspecified; Z79.899 Other long term (current) drug therapy; Z88.8 Allergy status to other drugs, medicaments and biological substances
CPT/HCPCS: 29893; J0690; J1100; J1580; J1885; J2250; J2405; J3010

== ENCOUNTER → 2022-02-24 | Outpatient (CLI) | payer BC, OTHER ==
[~2022-02-24] MED LIST changes: +CEPH500C PO; -LR 1,000 ML IV ONE; +PHEN-501 PO; -ceFAZolin SOD 2 GM in IV 1 EA IV ONE
[2022-02-24 11:24] LABS: MALB URINE SIEMENS 11.3 MG/L; MAU/CREAT RATIO 7.5 MCG/MG (0.0-30.0)
[2022-02-24 13:18] LABS: HEMOGLOBIN A1c 5.5 %
[2022-02-24 18:42] LABS: ALBUMIN 3.6 GM/DL (3.2-5.2); ALT/SGPT 20 U/L (12-78); BILIRUBIN,TOTAL 0.3 MG/DL (0.2-1.0); BLOOD UREA NITROGEN 20 MG/DL (7-18); C REACTIVE PROTEIN QUANTITATIV 1.19 MG/DL (0.00-0.30); CALCIUM LEVEL 9.4 MG/DL (8.8-10.2); CARBON DIOXIDE LEVEL 26 MEQ/L (21-32); CHLORIDE LEVEL 107 MEQ/L (98-107); CHOLESTEROL LEVEL 230 MG/DL (<200); CHOLESTEROL RISK RATIO 2.346 (<5); CREATININE FOR GFR 0.89 MG/DL (0.55-1.30); GLOMERULAR FILTRATION RATE > 60.0 (>45); GLUCOSE, FASTING 81 MG/DL (70-100); HDL CHOLESTEROL 98 MG/DL (>40); LDL CHOLESTEROL 115 MG/DL (<100); NON-HDL-C 132 MG/DL; POTASSIUM SERUM 4.7 MEQ/L (3.5-5.1); PTH INTACT 17.8 PG/ML (18.5-88.0); SODIUM LEVEL 144 MEQ/L (136-145); TOTAL 25(OH) VITAMIN D 80.9 NG/ML (30.0-100.0); TRIGLYCERIDES LEVEL 85 MG/DL (<150)
[2022-02-25 04:07] LABS: APOLIPOPROTEIN B/A-1 RATIO 0.4 ratio (0.0-0.6)
== END ==
LOC: M LAB 09:57
PROVIDERS: ATTEND Family Medicine
DX: E55.9 Vitamin D deficiency, unspecified (principal); E78.5 Hyperlipidemia, unspecified

== ENCOUNTER → 2022-07-15 | Outpatient (CLI) | payer BC, OTHER | LOC: M WHC 14:01 | PROVIDERS: ATTEND Family Medicine | DX: Z12.39 Encounter for other screening for malignant neoplasm of breast (principal); Z12.31 Encounter for screening mammogram for malignant neoplasm of breast ==

== ENCOUNTER → 2022-07-15 | Outpatient (CLI) | payer BC, OTHER ==
[2022-07-15 17:21] LABS: BASO # 0.1 10^3/uL (0.0-0.2); BASO % 1.2 % (0.0-1.0); EOS # 0.2 10^3/uL (0.0-0.5); EOS % 2.6 % (0.0-3.0); HEMATOCRIT 40.6 % (36.0-47.0); HEMOGLOBIN 12.8 g/dl (12.0-15.5); LYMPH # 2.5 10^3/uL (1.5-5.0); LYMPH % 38.2 % (24.0-44.0); MEAN CORPUSCULAR HEMOGLOBIN 27.9 pg (27.0-33.0); MEAN CORPUSCULAR HGB CONC 31.5 g/dl (32.0-36.5); MEAN CORPUSCULAR VOLUME 88.6 fl (80.0-96.0); MONO # 0.6 10^3/uL (0.0-0.8); MONO % 9.6 % (2.0-8.0); NEUTROPHILS # 3.1 10^3/uL (1.5-8.5); NEUTROPHILS % 48.1 % (36.0-66.0); PLATELET COUNT, AUTOMATED 241 10^3/uL (150-450); RED BLOOD COUNT 4.58 10^6/uL (4.00-5.40); WHITE BLOOD COUNT 6.5 10^3/uL (4.0-10.0)
[2022-07-15 17:48] LABS: ERYTHROCYTE SEDIMENTATION RATE 27 mm/hr (0-30)
[2022-07-15 18:07] LABS: ALBUMIN 3.6 GM/DL (3.2-5.2); ALT/SGPT 26 U/L (12-78); BILIRUBIN,TOTAL 0.3 MG/DL (0.2-1.0); BLOOD UREA NITROGEN 9 MG/DL (7-18); C REACTIVE PROTEIN QUANTITATIV 2.93 MG/DL (0.00-0.30); CALCIUM LEVEL 9.5 MG/DL (8.8-10.2); CARBON DIOXIDE LEVEL 30 MEQ/L (21-32); CHLORIDE LEVEL 105 MEQ/L (98-107); GLOMERULAR FILTRATION RATE > 60.0 (>45); GLUCOSE, FASTING 82 MG/DL (70-100); LIPASE 72 U/L (73-393); POTASSIUM SERUM 4.1 MEQ/L (3.5-5.1); SODIUM LEVEL 141 MEQ/L (136-145); TOTAL PROTEIN 6.9 GM/DL (6.4-8.2)
== END ==
LOC: M PLALAB 14:39
PROVIDERS: ATTEND Physician Assistant
DX: K92.1 Melena (principal); Z23 Encounter for immunization; R10.9 Unspecified abdominal pain

== ENCOUNTER 2022-07-24 06:07 | Inpatient (IN) | payer BC, OTHER ==
[~2022-07-24] VITALS: Ht 170.2 cm; Wt 84.7 kg
[2022-07-24] MEDS ORDERED: VANC125C3 PO (06:17)
[2022-07-24] MEDS ORDERED: NS 1,000 ML IV ONE (06:35)
[2022-07-24] MEDS ORDERED: ONDANSETRON 4MG 2ML VIAL IV ONE (07:25)
[2022-07-24 07:29] LABS: BASO # 0.1 10^3/uL (0.0-0.2); BASO % 0.5 % (0.0-1.0); HEMATOCRIT 44.6 % (36.0-47.0); HEMOGLOBIN 14.3 g/dl (12.0-15.5); LYMPH # 1.9 10^3/uL (1.5-5.0); LYMPH % 11.5 % (24.0-44.0); MEAN CORPUSCULAR HGB CONC 32.1 g/dl (32.0-36.5); MEAN CORPUSCULAR VOLUME 87.3 fl (80.0-96.0); MONO # 0.7 10^3/uL (0.0-0.8); MONO % 4.2 % (2.0-8.0); NEUTROPHILS % 83.1 % (36.0-66.0); PLATELET COUNT, AUTOMATED 302 10^3/uL (150-450); RED BLOOD COUNT 5.11 10^6/uL (4.00-5.40); WHITE BLOOD COUNT 16.8 10^3/uL (4.0-10.0)
[2022-07-24] MEDS: MORPHINE 2 MG/ML 1ML VIAL IV PRN ×2 (07:33→09:08)
[2022-07-24 07:57] LABS: RSV AMPLIFICATION NEGATIVE (NEGATIVE)
[2022-07-24 07:58] LABS: ALBUMIN 3.7 G/DL (3.2-5.2); ALT/SGPT 19 U/L (7.0-40); BILIRUBIN,DIRECT < 0.1 MG/DL (<0.4); BILIRUBIN,TOTAL 0.4 MG/DL (0.3-1.2); LIPASE 26 U/L (12-53); TOTAL PROTEIN 6.9 G/DL (5.7-8.2)
[2022-07-24 08:15] LABS: BLOOD UREA NITROGEN 12 MG/DL (9-23); CALCIUM LEVEL 9.2 MG/DL (8.3-10.6); CARBON DIOXIDE LEVEL 26 MMOL/L (20-31); CHLORIDE LEVEL 102 MMOL/L (98-107); CREATININE FOR GFR 0.81 MG/DL (0.55-1.30); GLOMERULAR FILTRATION RATE > 60.0 (>45); GLUCOSE, FASTING 134 MG/DL (74-106); POTASSIUM SERUM 3.5 MMOL/L (3.5-5.1); SODIUM LEVEL 139 MMOL/L (136-145)
[2022-07-24] MEDS ORDERED: ISOVUE-370 76% 100ML VIAL As Ordered ONE (09:03)
[2022-07-24 09:12] LABS: INR 1.03; PARTIAL THROMBOPLASTIN TIME 29.4 SECONDS (24.8-34.2); PROTHROMBIN TIME 13.7 SECONDS (12.5-14.5)
[2022-07-24] MEDS: NS 1,000 ML IV ONE ×2 (11:20→16:10)
[2022-07-24] MEDS ORDERED: HOME MED LIST COMPLETE! XX SCH (11:40)
[2022-07-24] MEDS ORDERED: PIME1CRE TOP (11:40)
[2022-07-24] MEDS ORDERED: MORPHINE 4 MG/ML 1ML VIAL/SYRINGE IV ONE (11:45)
[2022-07-24] MEDS ORDERED: DIFI200T PO (12:12)
[2022-07-24] MEDS ORDERED: ONDANSETRON 4MG 2ML VIAL IV PRN (12:15)
[2022-07-24] MEDS ORDERED: KETOROLAC 30 MG/ML 1ML VIAL IV PRN (12:15)
[2022-07-24] MEDS: FIDAXOMICIN 200 MG TAB (DIFICID) PO SCH ×2 (13:55→20:41)
[2022-07-24 14:20] VITALS: BP 130/58
[2022-07-24] MEDS: MORPHINE 4 MG/ML 1ML VIAL/SYRINGE IV PRN ×2 (16:08→20:15)
[2022-07-24] MEDS: NS 1,000 ML IV SCH (20:13)
[2022-07-24 20:20] VITALS: BP 123/58
[2022-07-25] MEDS: MORPHINE 4 MG/ML 1ML VIAL/SYRINGE IV PRN (02:32)
[2022-07-25 04:34] VITALS: BP 99/52
[2022-07-25 04:47] VITALS: BP 102/56
[2022-07-25 07:44] LABS: BASO # 0.1 10^3/uL (0.0-0.2); BASO % 0.5 % (0.0-1.0); EOS # 0.1 10^3/uL (0.0-0.5); EOS % 0.4 % (0.0-3.0); HEMATOCRIT 36.9 % (36.0-47.0); LYMPH # 3.1 10^3/uL (1.5-5.0); LYMPH % 23.4 % (24.0-44.0); MEAN CORPUSCULAR HEMOGLOBIN 27.9 pg (27.0-33.0); MEAN CORPUSCULAR HGB CONC 31.7 g/dl (32.0-36.5); MEAN CORPUSCULAR VOLUME 88.1 fl (80.0-96.0); MONO # 0.9 10^3/uL (0.0-0.8); MONO % 6.6 % (2.0-8.0); NEUTROPHILS # 9.2 10^3/uL (1.5-8.5); NEUTROPHILS % 68.7 % (36.0-66.0); PLATELET COUNT, AUTOMATED 238 10^3/uL (150-450); RED BLOOD COUNT 4.19 10^6/uL (4.00-5.40); WHITE BLOOD COUNT 13.4 10^3/uL (4.0-10.0)
[2022-07-25 08:02] LABS: HEMOGLOBIN 11.7 g/dl (12.0-15.5)
[2022-07-25 08:17] LABS: BLOOD UREA NITROGEN 6 MG/DL (9-23); CALCIUM LEVEL 8.5 MG/DL (8.3-10.6); CARBON DIOXIDE LEVEL 26 MMOL/L (20-31); CHLORIDE LEVEL 107 MMOL/L (98-107); CREATININE FOR GFR 0.69 MG/DL (0.55-1.30); GLOMERULAR FILTRATION RATE > 60.0 (>45); GLUCOSE, FASTING 92 MG/DL (74-106); POTASSIUM SERUM 3.8 MMOL/L (3.5-5.1); SODIUM LEVEL 142 MMOL/L (136-145)
[2022-07-25] MEDS: FIDAXOMICIN 200 MG TAB (DIFICID) PO SCH ×2 (09:00→21:24)
[2022-07-25] MEDS: NS 1,000 ML IV SCH (09:00)
[2022-07-25 14:46] VITALS: BP 100/60
[2022-07-25 21:27] VITALS: BP 108/56
[2022-07-26 05:40] VITALS: BP 104/51
[2022-07-26 08:15] LABS: BASO # 0.1 10^3/uL (0.0-0.2); EOS # 0.2 10^3/uL (0.0-0.5); EOS % 2.2 % (0.0-3.0); HEMATOCRIT 37.4 % (36.0-47.0); HEMOGLOBIN 11.8 g/dl (12.0-15.5); LYMPH # 2.6 10^3/uL (1.5-5.0); LYMPH % 31.9 % (24.0-44.0); MEAN CORPUSCULAR HGB CONC 31.6 g/dl (32.0-36.5); MEAN CORPUSCULAR VOLUME 88.6 fl (80.0-96.0); MONO # 0.6 10^3/uL (0.0-0.8); MONO % 6.8 % (2.0-8.0); NEUTROPHILS # 4.7 10^3/uL (1.5-8.5); NEUTROPHILS % 57.7 % (36.0-66.0); PLATELET COUNT, AUTOMATED 234 10^3/uL (150-450); RED BLOOD COUNT 4.22 10^6/uL (4.00-5.40); WHITE BLOOD COUNT 8.1 10^3/uL (4.0-10.0)
[2022-07-26] MEDS: FIDAXOMICIN 200 MG TAB (DIFICID) PO SCH (08:25)
[2022-07-26 08:51] LABS: BLOOD UREA NITROGEN < 5 MG/DL (9-23); CALCIUM LEVEL 8.3 MG/DL (8.3-10.6); CARBON DIOXIDE LEVEL 28 MMOL/L (20-31); CHLORIDE LEVEL 107 MMOL/L (98-107); CREATININE FOR GFR 0.69 MG/DL (0.55-1.30); GLOMERULAR FILTRATION RATE > 60.0 (>45); GLUCOSE, FASTING 89 MG/DL (74-106); SODIUM LEVEL 144 MMOL/L (136-145)
== END 2022-07-26 12:10 | disposition home or self-care (01) | DRG 248 ==
LOC: M ED 06:07 → M ED INP 11:03 → ENRESERV 11:44 → M MS5PR 14:10
PROVIDERS: ADMIT Internal Medicine Nephrology; ATTEND Internal Medicine Nephrology
DX: A04.72 Enterocolitis due to Clostridium difficile, not specified as recurrent (principal); K92.1 Melena; G43.909 Migraine, unspecified, not intractable, without status migrainosus; K64.8 Other hemorrhoids; M72.2 Plantar fascial fibromatosis; G57.51 Tarsal tunnel syndrome, right lower limb; I87.8 Other specified disorders of veins; H69.81 Other specified disorders of Eustachian tube, right ear; M43.05 Spondylolysis, thoracolumbar region; Z79.899 Other long term (current) drug therapy; Z88.8 Allergy status to other drugs, medicaments and biological substances

== ENCOUNTER 2022-07-28 09:12 | Inpatient (IN) | payer BC, OTHER ==
[~2022-07-28] VITALS: Ht 170.2 cm; Wt 83.6 kg
[~2022-07-28 09:12] MED LIST changes: +DIFI200T PO; +PIME1CRE TOP; +VANC125C3 PO
[2022-07-28] MEDS ORDERED: ONDANSETRON 4MG 2ML VIAL IV ONE (10:15)
[2022-07-28] MEDS: MORPHINE 2 MG/ML 1ML VIAL IV PRN ×2 (11:08→13:03)
[2022-07-28 11:21] LABS: HEMATOCRIT 38.2 % (36.0-47.0); HEMOGLOBIN 12.2 g/dl (12.0-15.5); MEAN CORPUSCULAR HEMOGLOBIN 27.9 pg (27.0-33.0); MEAN CORPUSCULAR HGB CONC 31.9 g/dl (32.0-36.5); MEAN CORPUSCULAR VOLUME 87.4 fl (80.0-96.0); PLATELET COUNT, AUTOMATED 260 10^3/uL (150-450); RED BLOOD COUNT 4.37 10^6/uL (4.00-5.40); WHITE BLOOD COUNT 11.6 10^3/uL (4.0-10.0)
[2022-07-28] MEDS ORDERED: NS 1,000 ML IV SCH (11:45)
[2022-07-28 11:59] LABS: RSV AMPLIFICATION NEGATIVE (NEGATIVE)
[2022-07-28 12:07] LABS: BLOOD UREA NITROGEN 8 MG/DL (9-23); CALCIUM LEVEL 8.6 MG/DL (8.3-10.6); CARBON DIOXIDE LEVEL 24 MMOL/L (20-31); CHLORIDE LEVEL 104 MMOL/L (98-107); CREATININE FOR GFR 0.77 MG/DL (0.55-1.30); GLOMERULAR FILTRATION RATE > 60.0 (>45); GLUCOSE, FASTING 92 MG/DL (74-106); POTASSIUM SERUM 4.4 MMOL/L (3.5-5.1); SODIUM LEVEL 140 MMOL/L (136-145)
[2022-07-28] MEDS ORDERED: MORPHINE 2 MG/ML 1ML VIAL IV PRN (13:40)
[2022-07-28] MEDS ORDERED: ONDANSETRON 4MG 2ML VIAL IV PRN ×3 (14:25→23:50)
[2022-07-28] MEDS: D5W/0.45% SODIUM CHLORIDE 1,000 ML IV SCH (14:46)
[2022-07-28] MEDS ORDERED: IBUP1TAB5 PO (15:11)
[2022-07-28] MEDS ORDERED: HOME MED LIST COMPLETE! XX SCH (15:15)
[2022-07-28 17:20] VITALS: BP 115/71
[2022-07-28] MEDS ORDERED: HYDROMORPHONE HCL 0.5 MG/ 0.5 ML SYRINGE (J1170 PER 1) IV PRN ×2 (17:35→23:50)
[2022-07-28] MEDS ORDERED: NALOXONE INJ 0.4MG/1ML VIAL (J2310 PER 1MG) IV PRN (17:35)
[2022-07-28] MEDS ORDERED: HYDROMORPHONE HCL 0.5 MG/ 0.5 ML SYRINGE (J1170 PER 1) IV ONE (17:35)
[2022-07-28] MEDS ORDERED: LIDOCAINE 2% 100MG/5ML SDV (FOR ANES.) As Ordered ONE (19:38)
[2022-07-28] MEDS ORDERED: propofoL 200 MG/20 ML VIAL As Ordered ONE (19:38)
[2022-07-28] MEDS ORDERED: ROCURONIUM BROMIDE 50 MG/5 ML VIAL As Ordered ONE (19:38)
[2022-07-28] MEDS ORDERED: fentaNYL 250 MCG/5 ML INJECTION As Ordered ONE (19:39)
[2022-07-28] MEDS ORDERED: MIDAZOLAM INJ 2MG/2ML VIAL (J2250 PER 1MG) As Ordered ONE ×2 (19:39→22:51)
[2022-07-28] MEDS ORDERED: VANCOMYCIN HCL 1,000 MG, VIAL MATE ADAPTER 1 EACH in NS 250 ML IV ONE (19:50)
[2022-07-28 20:05] VITALS: BP 115/62
[2022-07-28] MEDS: FIDAXOMICIN 200 MG TAB (DIFICID) PO SCH (20:13)
[2022-07-28] MEDS ORDERED: BUPIVACAINE/EPIN 0.5% 30 ML VIAL As Ordered ONE (20:24)
[2022-07-28] MEDS ORDERED: VANCOMYCIN 1000MG/20ML VIAL As Ordered ONE (20:34)
[2022-07-28] MEDS ORDERED: propofoL 500 MG/50 ML VIAL As Ordered ONE (21:13)
[2022-07-28] MEDS ORDERED: PHENYLephrine 500MCG 5ML (100MCG/ML) SYRINGE As Ordered ONE (21:46)
[2022-07-28] MEDS ORDERED: KETOROLAC 60MG 2ML VIAL As Ordered ONE (22:41)
[2022-07-28] MEDS ORDERED: ONDANSETRON 4MG 2ML VIAL As Ordered ONE (22:41)
[2022-07-28] MEDS ORDERED: ACETAMINOPHEN 1000MG 100ML IV BAG As Ordered ONE (22:42)
[2022-07-28] MEDS ORDERED: diphenhydrAMINE 50MG/ML VIAL IV PRN (23:45)
[2022-07-28] MEDS ORDERED: oxyCODONE 5MG TAB PO PRN ×2 (23:45→23:50)
[2022-07-28] MEDS ORDERED: SENNA 8.6 MG TAB (SENOKOT) PO PRN (23:45)
[2022-07-28] MEDS ORDERED: ACETAMINOPHEN TAB 650MG DOSE (2X325MG) PO PRN (23:45)
[2022-07-28] MEDS ORDERED: METOCLOPRAMIDE INJ 10MG/2ML VIAL (J2765 PER 1) IV PRN (23:50)
[2022-07-28] MEDS ORDERED: LR 1,000 ML IV SCH (23:50)
[2022-07-28] MEDS ORDERED: fentaNYL 100 MCG/2 ML INJECTION IV PRN (23:50)
[2022-07-29] VITALS (7 sets, daily range): BP systolic 90–120; BP diastolic 40–63
[2022-07-29] MEDS: HYDROMORPHONE HCL 0.5 MG/ 0.5 ML SYRINGE (J1170 PER 1) IV PRN ×2 (00:15→00:20)
[2022-07-29] MEDS: D5W/0.45% SODIUM CHLORIDE 1,000 ML IV SCH (00:57)
[2022-07-29] MEDS: KETOROLAC 30 MG/ML 1ML VIAL IV SCH ×3 (01:18→12:16)
[2022-07-29] MEDS ORDERED: VANCOMYCIN HCL 750 MG, VIAL MATE ADAPTER 1 EACH in D5W 250 ML IV SCH (05:00)
[2022-07-29] MEDS ORDERED: VANCOMYCIN HCL 500 MG in D5W MINI-BAG PLUS 100 ML IV SCH (06:00)
[2022-07-29] MEDS ORDERED: MIRA3350 PO (07:29)
[2022-07-29] MEDS ORDERED: ASPI81TAEC PO (07:29)
[2022-07-29] MEDS ORDERED: SENO8.6T10 PO (07:29)
[2022-07-29] MEDS ORDERED: OXYC-517 PO (07:29)
[2022-07-29] MEDS ORDERED: NS 1,000 ML IV ONE (08:00)
[2022-07-29] MEDS: MIDODRINE 5 MG TAB PO SCH ×2 (08:04→12:16)
[2022-07-29] MEDS: FIDAXOMICIN 200 MG TAB (DIFICID) PO SCH (08:05)
[2022-07-29] MEDS ORDERED: DOCUSATE SODIUM 100MG CAPSULE PO SCH (09:00)
[2022-07-29] MEDS ORDERED: SOLIFENACIN 5 MG TAB PO SCH (09:00)
[2022-07-29] MEDS ORDERED: ENTER DRUG NAME HERE (PATIENT'S OWN MED) PO SCH (09:00)
[2022-07-29] MEDS ORDERED: MULTIVITAMINS/MINERALS THERAP 1 TAB PO SCH (09:00)
[2022-07-29] MEDS ORDERED: ASPIRIN 81MG ENTERIC TABLET PO SCH (09:00)
[2022-07-30] MEDS ORDERED: IBUPROFEN 600MG TAB PO PRN (01:00)
== END 2022-07-29 15:00 | disposition home or self-care (01) | DRG 313 ==
LOC: M ED 09:12 → M ED INP 14:22 → ENRESERV 16:25 → M MS5PR 17:15
PROVIDERS: ADMIT General Practice; ATTEND General Practice
PROC: 0QSJ04Z Reposition Right Fibula with Internal Fixation Device, Open Approach (ICD-10-PCS; principal; 2022-07-28 17:00)
DX: S82.851A Displaced trimalleolar fracture of right lower leg, initial encounter for closed fracture (principal); A04.71 Enterocolitis due to Clostridium difficile, recurrent; G43.909 Migraine, unspecified, not intractable, without status migrainosus; K64.8 Other hemorrhoids; Z79.899 Other long term (current) drug therapy; Z88.8 Allergy status to other drugs, medicaments and biological substances; I10 Essential (primary) hypertension; W00.0XXA Fall on same level due to ice and snow, initial encounter; Y92.009 Unspecified place in unspecified non-institutional (private) residence as the place of occurrence of the external cause

== ENCOUNTER → 2022-08-05 | Outpatient (REF) | payer OTHER ==
[~2022-08-05] MED LIST changes: +ACET-683 PO; +ASPI81TAEC PO; +IBUP1TAB5 PO; +MIRA3350 PO; +OXYC-517 PO; +SENO8.6T10 PO
[2022-08-05 18:42] LABS: APPEARANCE, URINE MANUAL HAZY (CLEAR); COLOR, URINE MANUAL COLORLESS (YELLOW)
[2022-08-05 18:43] LABS: BILIRUBIN, URINE MANUAL NEGATIVE (NEGATIVE); BLOOD URINE MANUAL NEGATIVE (NEGATIVE); GLUCOSE, URINE (UA) MANUAL NEGATIVE (NEGATIVE); KETONE, URINE MANUAL NEGATIVE (NEGATIVE); NITRITE, URINE MANUAL POSITIVE (NEGATIVE); PROTEIN, URINE MANUAL NEGATIVE (NEGATIVE); UROBILINOGEN, URINE MANUAL NORMAL (NORMAL)
[2022-08-05 18:45] LABS: LEUKOCYTE ESTERASE, URINE MAN TRACE (NEGATIVE)
[2022-08-05 19:07] LABS: BACTERIA, URINE LARGE AMOUNT; HYALINE CAST, URINE NONE SEEN /lpf (0-1); RBC, URINE 0-1 /hpf (0-3); SQUAMOUS EPITHELIAL CELL URINE SMALL AMOUNT /hpf (SMALL AMT); WBC, URINE 15-20 /hpf (0-3)
== END ==
LOC: M SFHCPLAZ 14:05
PROVIDERS: ATTEND Family Medicine
DX: R30.0 Dysuria (principal)

== ENCOUNTER → 2022-08-06 | Outpatient (CLI) | payer BC, OTHER | LOC: M WHC 09:44 | PROVIDERS: ATTEND Family Medicine | DX: Z12.31 Encounter for screening mammogram for malignant neoplasm of breast (principal) | CPT/HCPCS: 77065; G0279 ==

== ENCOUNTER → 2022-08-09 | Outpatient (CLI) | payer BC, OTHER | LOC: M LABSMTC 09:46 | PROVIDERS: ATTEND Anesthesiology | DX: Z01.812 Encounter for preprocedural laboratory examination (principal); Z20.822 Contact with and (suspected) exposure to COVID-19 ==

== ENCOUNTER 2022-08-11 13:27 | Day surgery (SDC) | payer BC, OTHER ==
[~2022-08-11] VITALS: Ht 170.2 cm; Wt 81.6 kg
[~2022-08-11 13:27] MED LIST changes: +NS 1,000 ML IV ONE
[2022-08-11] MEDS ORDERED: FECAL MICROBIOTA TRANSPLANT PREPARATION 35ML BAG XX ONE (14:00)
[2022-08-11 16:00] VITALS: BP 122/59
== END 2022-08-11 16:07 | disposition home or self-care (01) ==
LOC: M OPP 13:27
PROVIDERS: ATTEND Internal Medicine Gastroenterology
DX: A04.71 Enterocolitis due to Clostridium difficile, recurrent (principal); K57.30 Diverticulosis of large intestine without perforation or abscess without bleeding; K64.8 Other hemorrhoids; Z88.8 Allergy status to other drugs, medicaments and biological substances; Z79.82 Long term (current) use of aspirin; Z79.899 Other long term (current) drug therapy

== ENCOUNTER → 2022-08-13 | Outpatient (CLI) | payer BC, OTHER ==
[~2022-08-13] MED LIST changes: -NS 1,000 ML IV ONE
== END ==
LOC: M SOG 08:06
PROVIDERS: ATTEND Orthopaedic Surgery Adult Reconstructive Orthopaedic Surgery
DX: M25.571 Pain in right ankle and joints of right foot (principal); Z87.81 Personal history of (healed) traumatic fracture

== ENCOUNTER → 2022-09-10 | Outpatient (CLI) | payer BC, OTHER | LOC: M SOG 10:09 | PROVIDERS: ATTEND Orthopaedic Surgery Adult Reconstructive Orthopaedic Surgery | DX: S82.851D Displaced trimalleolar fracture of right lower leg, subsequent encounter for closed fracture with routine healing (principal) ==

== ENCOUNTER → 2022-10-13 | Outpatient (CLI) | payer BC, OTHER | LOC: M WHC 11:07 | PROVIDERS: ATTEND Family Medicine | DX: Z13.820 Encounter for screening for osteoporosis (principal); M85.80 Other specified disorders of bone density and structure, unspecified site ==

== ENCOUNTER → 2023-02-15 | Outpatient (REF) | payer OTHER ==
[~2023-02-15] MED LIST changes: +TOPI-254 PO; -TOPI50TA9 PO
== END ==
LOC: M SFHCPLAZ 09:34
PROVIDERS: ATTEND Family Medicine
DX: E55.9 Vitamin D deficiency, unspecified (principal); E78.5 Hyperlipidemia, unspecified; Z53.9 Procedure and treatment not carried out, unspecified reason

== ENCOUNTER → 2023-02-15 | Outpatient (CLI) | payer BC, OTHER ==
[2023-02-15 14:42] LABS: THYROID STIMULATING HORMONE 1.018 uIU/ML (0.55-4.78)
[2023-02-15 14:43] LABS: TOTAL 25(OH) VITAMIN D 56.8 NG/ML (20.0-100.0)
[2023-02-15 14:45] LABS: ALBUMIN 3.7 G/DL (3.2-5.2); ALKALINE PHOSPHATASE 74 U/L (46-116); ALT/SGPT 17 U/L (7.0-40); AST/SGOT 16 U/L (<34); BILIRUBIN,TOTAL 0.4 MG/DL (0.3-1.2); BLOOD UREA NITROGEN 11 MG/DL (9-23); CALCIUM LEVEL 8.9 MG/DL (8.3-10.6); CARBON DIOXIDE LEVEL 28 MMOL/L (20-31); CHLORIDE LEVEL 106 MMOL/L (98-107); CHOLESTEROL LEVEL 219 MG/DL (<200); CHOLESTEROL RISK RATIO 2.34 (<5); CREATININE FOR GFR 0.82 MG/DL (0.55-1.30); FREE T4 0.85 NG/DL (0.89-1.76); GLOMERULAR FILTRATION RATE > 60.0 (>45); GLUCOSE, FASTING 87 MG/DL (74-106); HDL CHOLESTEROL 93.5 MG/DL (>40); LDL CHOLESTEROL 104.3 MG/DL (<100); NON-HDL-C 125.5 MG/DL; POTASSIUM SERUM 4.3 MMOL/L (3.5-5.1); SODIUM LEVEL 142 MMOL/L (136-145); TOTAL PROTEIN 6.7 G/DL (5.7-8.2); TRIGLYCERIDES LEVEL 106 MG/DL (<150)
== END ==
LOC: M PLALAB 09:51
PROVIDERS: ATTEND Family Medicine
DX: E55.9 Vitamin D deficiency, unspecified (principal); E78.5 Hyperlipidemia, unspecified

== ENCOUNTER → 2023-05-26 | Outpatient (CLI) | payer BC, OTHER ==
[~2023-05-26] MED LIST changes: +MECL-209 PO; -MECL1TAB31 PO
[2023-05-27 15:40] LABS: IMMUNOGLOBULIN A 159.4 MG/DL (40-350)
== END ==
LOC: M PLALAB 11:59
PROVIDERS: ATTEND Family Medicine
DX: L03.113 Cellulitis of right upper limb (principal)

== ENCOUNTER → 2023-08-26 | Outpatient (REF) ==
[~2023-08-26] MED LIST changes: +TOPI-21 PO; -TOPI-254 PO
== END ==
LOC: M EMP 09:16
PROVIDERS: ATTEND Family Medicine
DX: Z11.52 Encounter for screening for COVID-19 (principal)

== ENCOUNTER → 2023-09-13 | Outpatient (CLI) | payer BC, OTHER | LOC: M WHC 16:03 | PROVIDERS: ATTEND Family Medicine | DX: Z12.31 Encounter for screening mammogram for malignant neoplasm of breast (principal) ==

== ENCOUNTER → 2024-01-14 | Outpatient (REF) | payer OTHER ==
[~2024-01-14] MED LIST changes: +CRAN500C11 PO; -CVS500CA5 PO
== END ==
LOC: M LAB REF 09:43
PROVIDERS: ATTEND Nurse Practitioner Family
DX: R30.0 Dysuria (principal)

== ENCOUNTER → 2024-02-15 | Outpatient (REF) | payer BC ==
[2024-02-15 15:28] LABS: APPEARANCE, URINE HAZY (CLEAR); BACTERIA, URINE AUTO 1+ (NEGATIVE); BILIRUBIN, URINE AUTO NEGATIVE (NEGATIVE); BLOOD, URINE BLOOD 1+ (NEGATIVE); COLOR, URINE AMBER (YELLOW); GLUCOSE, URINE (UA) AUTO NEGATIVE (NEGATIVE); KETONE, URINE AUTO NEGATIVE (NEGATIVE); LEUKOCYTE ESTERASE, URINE AUTO TRACE (NEGATIVE); MUCUS, URINE SMALL (NEGATIVE); NITRITE, URINE AUTO POSITIVE (NEGATIVE); PROTEIN, URINE AUTO 1+ mg/dL (NEGATIVE); RBC, URINE AUTO 70 /HPF (0-3); SPECIFIC GRAVITY URINE AUTO 1.015 (1.002-1.035); SQUAMOUS EPITHELIAL CELL UR AU 0 /HPF (0-6); WBC, URINE AUTO 178 /HPF (0-3)
[2024-02-15 15:52] LABS: CREATININE, URINE 107.1 MG/DL
== END ==
LOC: M SFHCPLAZ 13:50
PROVIDERS: ATTEND Family Medicine
DX: N39.0 Urinary tract infection, site not specified (principal)

== ENCOUNTER → 2024-02-16 | Outpatient (CLI) | payer BC | LOC: M PLAIMG 09:14 | PROVIDERS: ATTEND Family Medicine | DX: M19.041 Primary osteoarthritis, right hand (principal); M19.042 Primary osteoarthritis, left hand ==

== ENCOUNTER → 2024-02-17 | Outpatient (REF) | payer BC | LOC: M SFHCPLAZ 17:25 | PROVIDERS: ATTEND Family Medicine | DX: E78.5 Hyperlipidemia, unspecified (principal); E55.9 Vitamin D deficiency, unspecified; N95.1 Menopausal and female climacteric states; N39.0 Urinary tract infection, site not specified ==

== ENCOUNTER → 2024-03-06 | Outpatient (CLI) | payer BC ==
[2024-03-06 16:33] LABS: BASO # 0.1 10^3/uL (0.0-0.2); BASO % 0.9 % (0.0-1.0); EOS # 0.2 10^3/uL (0.0-0.5); EOS % 2.1 % (0.0-3.0); HEMATOCRIT 37.5 % (36.0-47.0); HEMOGLOBIN 12.2 g/dl (12.0-15.5); LYMPH # 2.6 10^3/uL (1.5-5.0); LYMPH % 33.8 % (24.0-44.0); MEAN CORPUSCULAR HEMOGLOBIN 28.8 pg (27.0-33.0); MEAN CORPUSCULAR HGB CONC 32.5 g/dl (32.0-36.5); MEAN CORPUSCULAR VOLUME 88.4 fl (80.0-96.0); MONO # 0.6 10^3/uL (0.0-0.8); MONO % 7.3 % (2.0-8.0); NEUTROPHILS # 4.3 10^3/uL (1.5-8.5); NEUTROPHILS % 55.5 % (36.0-66.0); PLATELET COUNT, AUTOMATED 256 10^3/uL (150-450); RED BLOOD COUNT 4.24 10^6/uL (4.00-5.40); WHITE BLOOD COUNT 7.8 10^3/uL (4.0-10.0)
[2024-03-06 16:52] LABS: CHOLESTEROL RISK RATIO 2.59 (<5); HDL CHOLESTEROL 83.1 MG/DL (>40); LDL CHOLESTEROL 110.9 MG/DL (<100); NON-HDL-C 132.9 MG/DL
[2024-03-06 16:53] LABS: PTH INTACT 63.9 PG/ML (18.5-88.0); TOTAL 25(OH) VITAMIN D 67.6 NG/ML (20.0-100.0)
[2024-03-06 16:54] LABS: FERRITIN 47.7 NG/ML (7.3-270.7); THYROID STIMULATING HORMONE 0.915 uIU/ML (0.55-4.78)
[2024-03-06 16:55] LABS: FREE T4 0.91 NG/DL (0.89-1.76)
[2024-03-06 18:59] LABS: HEMOGLOBIN A1c 5.2 % (4.0-6.0)
== END ==
LOC: M PLALAB 13:45
PROVIDERS: ATTEND Family Medicine
DX: N95.1 Menopausal and female climacteric states (principal); E78.5 Hyperlipidemia, unspecified; E55.9 Vitamin D deficiency, unspecified

== ENCOUNTER → 2024-06-27 | Outpatient (CLI) | payer BC ==
[~2024-06-27] MED LIST changes: -CRAN500C11 PO; +CVS500CA5 PO; +VANC250C12; -VANC250C3
== END ==
LOC: M PLAIMG 11:38
DX: M25.552 Pain in left hip (principal)

== ENCOUNTER 2024-08-24 09:09 | Emergency (ER) | payer MEDICARE, BC ==
[~2024-08-24] VITALS: Ht 170.2 cm; Wt 86.8 kg
[2024-08-24] MEDS ORDERED: TRIA1CR80 (09:22)
[2024-08-24] MEDS ORDERED: LEVOTAB10 (09:22)
[2024-08-24] MEDS ORDERED: PHEN37.58 (09:22)
[2024-08-24] MEDS ORDERED: VALA500T5 (09:22)
[2024-08-24 10:39] LABS: BASO # 0.1 10^3/uL (0.0-0.2); BASO % 0.6 % (0.0-1.0); EOS # 0.1 10^3/uL (0.0-0.5); EOS % 1.5 % (0.0-3.0); HEMATOCRIT 41.1 % (36.0-47.0); HEMOGLOBIN 13.6 g/dl (12.0-15.5); LYMPH # 1.8 10^3/uL (1.5-5.0); LYMPH % 19.8 % (24.0-44.0); MEAN CORPUSCULAR HEMOGLOBIN 29.3 pg (27.0-33.0); MEAN CORPUSCULAR HGB CONC 33.1 g/dl (32.0-36.5); MEAN CORPUSCULAR VOLUME 88.6 fl (80.0-96.0); MONO # 0.7 10^3/uL (0.0-0.8); MONO % 7.8 % (2.0-8.0); NEUTROPHILS # 6.2 10^3/uL (1.5-8.5); NEUTROPHILS % 69.9 % (36.0-66.0); PLATELET COUNT, AUTOMATED 277 10^3/uL (150-450); RED BLOOD COUNT 4.64 10^6/uL (4.00-5.40); WHITE BLOOD COUNT 8.9 10^3/uL (4.0-10.0)
[2024-08-24 11:05] LABS: LIPASE 20 U/L (12-53)
[2024-08-24 11:07] LABS: ALBUMIN 3.2 G/DL (3.2-5.2); ALKALINE PHOSPHATASE 71 U/L (35-104); ALT/SGPT 13 U/L (7.0-40); AST/SGOT 17 U/L (<34); BILIRUBIN,TOTAL 0.2 MG/DL (0.3-1.2); BLOOD UREA NITROGEN 7 MG/DL (9-23); CALCIUM LEVEL 9.2 MG/DL (8.3-10.6); CARBON DIOXIDE LEVEL 26 MMOL/L (20-31); CHLORIDE LEVEL 106 MMOL/L (98-107); CREATININE FOR GFR 0.74 MG/DL (0.55-1.30); GLOMERULAR FILTRATION RATE > 60.0 (>45); GLUCOSE, FASTING 85 MG/DL (74-106); POTASSIUM SERUM 4.2 MMOL/L (3.5-5.1); SODIUM LEVEL 142 MMOL/L (136-145); TOTAL PROTEIN 6.9 G/DL (5.7-8.2)
[2024-08-24] MEDS: NS (Normal Saline) 0.9% 1,000 ML IV ONE (12:47)
[2024-08-24] MEDS ORDERED: DIFI200T PO (13:50)
[2024-08-24] MEDS: FIDAXOMICIN 200 MG TAB (DIFICID) PO SCH (13:57)
[2024-08-24 14:00] VITALS: BP 115/56; TEMP 96.7; O2SAT 100
== END 2024-08-24 14:17 | disposition home or self-care (01) ==
LOC: M ED 09:09
DX: A04.72 Enterocolitis due to Clostridium difficile, not specified as recurrent (principal); G43.909 Migraine, unspecified, not intractable, without status migrainosus; F10.10 Alcohol abuse, uncomplicated; Z79.1 Long term (current) use of non-steroidal anti-inflammatories (NSAID); Z79.899 Other long term (current) drug therapy; Z79.2 Long term (current) use of antibiotics; Z91.048 Other nonmedicinal substance allergy status

== ENCOUNTER 2024-09-18 16:03 | Outpatient (CLI) | payer MEDICARE, BC ==
[~2024-09-18] VITALS: Ht 167.6 cm; Wt 84.1 kg
[~2024-09-18 16:03] MED LIST changes: +LEVOTAB10; +PHEN37.58; +TRIA1CR80; +VALA500T5
[2024-09-18 16:30] VITALS: BP 121/63; O2SAT 99
[2024-09-18] MEDS: FECAL MICROBIOTA, LIVE-JSLM 150ML BAG (REBYOTA) RC ONE (16:39)
[2024-09-18 17:00] VITALS: BP 135/67; O2SAT 99
== END 2024-09-18 17:00 ==
LOC: M INFU 16:03
DX: A04.71 Enterocolitis due to Clostridium difficile, recurrent (principal); Z88.8 Allergy status to other drugs, medicaments and biological substances; Z91.048 Other nonmedicinal substance allergy status
CPT/HCPCS: G0455; J1440

== ENCOUNTER 2025-06-18 08:31 | Emergency (ER) | payer BC, MEDICARE ==
[~2025-06-18] VITALS: Ht 167.6 cm; Wt 75.5 kg
[~2025-06-18 08:31] MED LIST changes: +VANC125C13 PO; -VANC125C3 PO
[2025-06-18] MEDS ORDERED: ESTR0.1C5 (08:39)
[2025-06-18] MEDS ORDERED: MIRA25TA2 (08:39)
[2025-06-18] MEDS ORDERED: SOLI10TA (08:39)
[2025-06-18 10:25] VITALS: BP 115/69; TEMP 97; O2SAT 99
[2025-06-18] MEDS: IBUPROFEN 800 MG TAB PO ONE (10:26)
[2025-06-18] MEDS ORDERED: PRED10TA2 PO (10:55)
== END 2025-06-18 11:00 | disposition home or self-care (01) ==
LOC: M ED 08:31
DX: M54.50 Low back pain, unspecified (principal); M25.551 Pain in right hip; Z88.8 Allergy status to other drugs, medicaments and biological substances; Z91.048 Other nonmedicinal substance allergy status; Z79.899 Other long term (current) drug therapy; Z79.52 Long term (current) use of systemic steroids